=== PATIENT | female | born 1940 | race Caucasian/White ===

== ENCOUNTER 2018-08-02 08:00 | Emergency (ER) | payer BC ==
[2018-08-02 08:10] VITALS: BMI 24.5
[2018-08-02 08:56] LABS: URINE APPEARANCE CLEAR; URINE BILIRUBIN NEGATIVE (<2.0 mg/dL); URINE COLOR LTYELLOW; URINE GLUCOSE (UA) NEGATIVE (NEGATIVE); URINE KETONE NEGATIVE (NEGATIVE); URINE LEUK ESTERASE NEGATIVE (NEGATIVE); URINE NITRITE NEGATIVE (NEGATIVE); URINE PROTEIN NEGATIVE (NEGATIVE); URINE UROBILINOGEN NEGATIVE mg/dL (0.2-1.0)
[2018-08-02 09:05] LABS: EPI CELLS RARE /HPF (FEW); URINE MUCUS RARE
[2018-08-02 09:47] LABS: BASO % 0.4 % (0-2.0); EOS % 0.3 % (0-4.5); HEMATOCRIT 43.4 % (32.4-45.2); HEMOGLOBIN 14.9 GM/dL (10.7-15.3); MCH 30.4 pg (25.7-33.7); MCHC 34.2 g/dl (32.0-36.0); MEAN CELL VOLUME 88.8 fl (80-96); MEAN PLT VOLUME 7.8 fl (7.5-11.1); MONO % 5.7 % (3.8-10.2); NEUT % 85.6 % (42.8-82.8); PLATELET COUNT 240 K/MM3 (134-434); RBC 4.89 M/mm3 (3.60-5.2); RDW 13.9 % (11.6-15.6); WHITE BLOOD COUNT 12.3 K/mm3 (4.0-10.0)
--- NOTE | 2018-08-02 09:48 | PDOC ---
History of Present Illness - General Chief Complaint: Pain, Acute Stated Complaint: ABDOMINAL PAIN Time Seen by Provider: 08/02/18 08:33 History Source: Patient Exam Limitations: No Limitations - History of Present Illness Initial Comments: 08/02/18 09:28 Patient is a 78F with history of osteoporosis, breast ca s/p mastectomy, chemo, radiation (completed in ) here today complaining of suprapubic abdominal pain for the past week. No fevers, chills, nausea, vomiting. No prior abdominal surgery. Patient endorses associated urinary frequency, denies dysuria. Last bowel movement yesterday. No chest pain or shortness of breath. No leg swelling. Past History - Past Medical History Allergies/Adverse Reactions: Allergies Allergy/AdvReac Type Severity Reaction Status Date / Time No Known Allergies Allergy Unverified 10/19/15 18:01 Home Medications: Ambulatory Orders Ciprofloxacin [Cipro (Restricted To Id)] 500 mg PO BID #20 tablet 08/02/18 Metronidazole 500 mg PO TID #30 tablet 08/02/18 Tramadol HCl 50 mg PO BID #10 tablet MDD 2 08/02/18 Cancer: Yes (breast) COPD: Yes - Surgical History Abdominal Surgery: No - Immunization History Immunization Up to Date: Yes - Suicide/Smoking/Psychosocial Hx Smoking Status: No Smoking History: Never smoked Number of Cigarettes Smoked Daily: 0 Cigars Per Day: 0 Information on smoking cessation initiated: No Hx Alcohol Use: No Drug/Substance Use Hx: No Substance Use Type: None Review of Systems - Review of Systems Comments:: 08/02/18 09:32 GENERAL/CONSTITUTIONAL: No fever or chills. No weakness. HEAD, EYES, EARS, NOSE AND THROAT: No change in vision. No sore throat. CARDIOVASCULAR: No chest pain or shortness of breath RESPIRATORY: No cough, wheezing, or hemoptysis. GASTROINTESTINAL: No nausea, vomiting, diarrhea or constipation. GENITOURINARY: No dysuria, +frequency MUSCULOSKELETAL: No joint or muscle swelling or pain. No neck or back pain. SKIN: No rash NEUROLOGIC: No headache, vertigo, loss of consciousness, or change in strength/ sensation. ENDOCRINE: No increased thirst. No abnormal weight change HEMATOLOGIC/LYMPHATIC: No anemia, easy bleeding, or history of blood clots. ALLERGIC/IMMUNOLOGIC: No hives or skin allergy. *Physical Exam - Vital Signs Last Vital Signs Temp Pulse Resp BP Pulse Ox 98.1 F 106 H 17 115/84 94 L 08/02/18 08:07 08/02/18 08:07 08/02/18 08:07 08/02/18 08:07 08/02/18 08:07 - Physical Exam Comments: 08/02/18 09:48 GENERAL: Awake, alert, and fully oriented, in no acute distress HEAD: No signs of trauma, normocephalic, atraumatic EYES: PERRLA, EOMI, sclera anicteric, conjunctiva clear ENT: Auricles normal inspection, hearing grossly normal, nares patent, oropharynx clear without exudates. Moist mucosa NECK: Normal ROM, supple, no lymphadenopathy, JVD, or masses LUNGS: No distress, speaks full sentences, clear to auscultation bilaterally HEART: Regular rate and rhythm, normal S1 and S2, no murmurs, rubs or gallops, peripheral pulses normal and equal bilaterally. ABDOMEN: Soft, +suprapubic tenderness, normoactive bowel sounds. No guarding, no rebound. No masses EXTREMITIES: Normal inspection, Normal range of motion, no edema. No clubbing or cyanosis. NEUROLOGICAL: Cranial nerves II through XII grossly intact. Normal speech, normal gait, no focal sensorimotor deficits SKIN: Warm, Dry, normal turgor, no rashes or lesions noted. ED Treatment Course - LABORATORY CBC & Chemistry Diagram: 08/02/18 09:30 08/02/18 09:30 - ADDITIONAL ORDERS Additional order review: Laboratory Results 08/02/18 08:45 Urine Color Ltyellow Urine Appearance Clear Urine pH 6.0 Ur Specific [place] 1.006 L Urine Protein Negative Urine Glucose (UA) Negative Urine Ketones Negative Urine Blood 2+ H Urine Nitrite Negative Urine Bilirubin Negative Urine Urobilinogen Negative Ur Leukocyte Esterase Negative Urine WBC (Auto) 1 Urine RBC (Auto) 3 Ur Epithelial Cells Rare Urine Mucus Rare Medical Decision Making - Medical Decision Making 08/02/18 09:51 Patient is a 78F with history of breast cancer and osteoporosis here today complaining of suprapubic abdominal pain. Initial UA normal. Tachycardic to 106 , afebrile. Rectal temp ordered. Patient appears well. DDx includes, but is not limited to: UTI, diverticulitis, nephrolithiasis. Abdominal labs drawn, will do CT a/p. 08/02/18 18:25 CBC shows leukocytosis. CMP reassuring. Lipase negative CT abd/pelvis shows diverticulitis. Patient is tolerating PO, asking to go home. Given strict return precautions. PO challenged passed. Will follow up with primary care doctor. Discharged with cipro/flagyl. *DC/Admit/Observation/Transfer Diagnosis at time of Disposition: Diverticulitis - Discharge Dispostion Disposition: HOME Condition at time of disposition: Good Decision to Admit order: No - Prescriptions Prescriptions: Ciprofloxacin [Cipro (Restricted To Id)] 500 mg PO BID #20 tablet Metronidazole 500 mg PO TID #30 tablet Tramadol HCl 50 mg PO BID #10 tablet MDD 2 - Referrals Referrals: Deysi Reeves MD [Primary Care Provider] - - Patient Instructions Printed Discharge Instructions: DI for Diverticulitis Additional Instructions: Please call your primary care doctor today to set up follow up for next week. Please return immediately if you have any new, worsening or concerning symptoms , especially fever, chills, increasing pain and vomiting. - Post Discharge Activity
[2018-08-02 10:13] LABS: INR 1.11 (0.83-1.09); PROTHROMBIN TIME (PATIENT) 13.1 SEC (9.7-13.0)
[2018-08-02 10:21] LABS: ALBUMIN 3.6 g/dl (3.4-5.0); ALK PHOS 82 U/L (45-117); ANION GAP 10 MMOL/L (8-16); BILIRUBIN,TOTAL 1.4 mg/dL (0.2-1); BLOOD UREA NITROGEN 13 mg/dL (7-18); CALCIUM 8.4 mg/dL (8.5-10.1); CHLORIDE 103 mmol/L (98-107); CO2 25 mmol/L (21-32); CREATININE 0.7 mg/dL (0.55-1.3); GLUCOSE,RANDOM 105 mg/dL (74-106); LIPASE 186 U/L (73-393); POTASSIUM 4.9 mmol/L (3.5-5.1); SGOT/AST 25 U/L (15-37); SGPT/ALT 14 U/L (13-61); SODIUM 138 mmol/L (136-145); TOT PROT 7.3 g/dl (6.4-8.2)
[2018-08-02] MEDS ORDERED: metroNIDAZOLE 500 MG TABLET PO ONE (12:17)
[2018-08-02] MEDS ORDERED: metroNIDAZOLE 250 MG TABLET ONE (12:28)
[2018-08-02 12:49] VITALS: BP 136/78; PULSE 78; TEMP 98.2
--- NOTE | 2018-08-02 13:39 | EKG ---
Test Reason : Blood Pressure : / mmHG Vent. Rate : 080 BPM Atrial Rate : 080 BPM P-R Int : 186 ms QRS Dur : 072 ms QT Int : 390 ms P-R-T Axes : 052 -36 013 degrees QTc Int : 449 ms NORMAL SINUS RHYTHM LEFT AXIS DEVIATION ABNORMAL ECG WHEN COMPARED WITH ECG OF 22-MAY-2008 15:08, NO SIGNIFICANT CHANGE WAS FOUND Confirmed by DEYSI ZAMORANO MD ([id number]) on 08/02/2018 1:38:49 PM Referred By: Confirmed By:DEYSI ZAMORANO MD
== END 2018-08-02 12:49 | disposition home or self-care (01) ==
LOC: JER 08:00
DX: K57.92 Diverticulitis of intestine, part unspecified, without perforation or abscess without bleeding (principal); Z85.3 Personal history of malignant neoplasm of breast
CPT/HCPCS: 36415; 74177-TC; 80053; 81003; 81015; 82550; 83605; 83690; 84484; 85025; 85610; 87086; 93005; 93010; 99283-25

== ENCOUNTER 2018-08-12 09:19 | Inpatient (IN) | payer BC, OTHER ==
[2018-08-12] MEDS ORDERED: SODIUM CHLORIDE 0.9% 500 ML INFUS.BAG IV ONE (09:28)
[2018-08-12] MEDS ORDERED: dilTIAZem HCL 50 MG/10 ML - 10 ML VIAL IVPUSH ONE ×2 (09:28→10:27)
--- NOTE | 2018-08-12 09:28 | PDOC ---
Attending Attestation - Medical Decision Making 08/12/18 10:[address] Tubbs. Awaiting call back from Dr. Souza, covering doctor. 08/12/18 11:[address] Souza. <Juliana Feng - Last Filed: 08/12/18 11:01> - Resident Resident Name: Aliya Powers - ED Attending Attestation I have performed the following: I have examined & evaluated the patient, The case was reviewed & discussed with the resident, I agree w/resident's findings & plan, Exceptions are as noted - HPI HPI: 78 yo F recently diagnosed with diverticulitis presents with palpitations, weakness since this AM. No prior similar symptoms. Denies cp, SOB, leg swelling. No prior cardiac history. - Physicial Exam PE: GENERAL: Awake, alert, and fully oriented, in no acute distress HEAD: No signs of trauma EYES: PERRLA, EOMI, sclera anicteric, conjunctiva clear ENT: Auricles normal inspection, hearing grossly normal, nares patent, oropharynx clear without exudates. Moist mucosa NECK: Normal ROM, supple, no lymphadenopathy, JVD, or masses LUNGS: Breath sounds equal, clear to auscultation bilaterally. No wheezes, and no crackles HEART: Tachycardic, irregularly irregular. ABDOMEN: Soft, nontender, normoactive bowel sounds. No guarding, no rebound. No masses EXTREMITIES: Normal range of motion, no edema. No clubbing or cyanosis. No cords, erythema, or tenderness NEUROLOGICAL: Cranial nerves II through XII grossly intact. Normal speech. Motor and sensation intact. SKIN: Warm, Dry, normal turgor, no rashes or lesions noted. - Medical Decision Making Pt with new onset rapid afib. Did not respond to cardizem 10mg, then an additional dose of cardizem was given after a push dose of phenylephrine. At this point her CBC resulted with a significant drop in Hb from ~14 to 7.8. In light of the new afib with hypotension and tachycardia, we emergently transfused her. Lab later called to state that the samples appeared diluted (IV fluid was not hanging when blood draw was done, it had been held when she first arrived in ED). Unclear how this happened, but the results were repeated, subsequently with Hb ~14, consistent with prior history. Explained to patient at bedside. Case d/w Dr. Souza, recommended digoxin. <Melody Schroeder - Last Filed: 08/12/18 14:40>
[2018-08-12 09:29] VITALS: BMI 24.5
[2018-08-12] MEDS ORDERED: dilTIAZem HCL 125 MG/25 ML - 25 ML VIAL ONE (09:32)
--- NOTE | 2018-08-12 09:49 | PDOC ---
History of Present Illness - General Chief Complaint: Palpitations Stated Complaint: Palpitations Time Seen by Provider: 08/12/18 09:27 History Source: Patient, EMS, Family Exam Limitations: No Limitations - History of Present Illness Initial Comments: 08/12/18 09:43 78YOF with h/o hyperthyroidism (had nodules removed years ago), MVP, right mastectomy/radical lymph note dissection, and diverticulitis (recently finished abx course) who was BIBEMS for rapid palpitations, SOB, slightly lightheaded. Never had this before, no estrogen use or recent extremity pain/swelling, no long trips. Did have recent cataract surgery in addition to the diverticulitis. Was having some very dark stool over the past 10 days but thought it was the meds she was taking. Denies CP, syncope/presyncope, back pain, abdominal pain, f /c/n/v/d/c. Past History - Past Medical History Allergies/Adverse Reactions: Allergies Allergy/AdvReac Type Severity Reaction Status Date / Time No Known Allergies Allergy Unverified 08/12/18 09:29 Home Medications: Ambulatory Orders NK [No Known Home Medication] 08/13/18 Cancer: Yes (breast) Cardiac Disorders: No COPD: Yes CHF: No GI Disorders: Yes (diverticulitis) - Surgical History Abdominal Surgery: No - Immunization History Immunization Up to Date: Yes - Suicide/Smoking/Psychosocial Hx Smoking Status: No Smoking History: Never smoked Have you smoked in the past 12 months: No Number of Cigarettes Smoked Daily: 0 Cigars Per Day: 0 Information on smoking cessation initiated: No Hx Alcohol Use: No Drug/Substance Use Hx: No Substance Use Type: None Review of Systems - Review of Systems Able to Perform ROS?: Yes Comments:: GEN: no fever, chills, generalized weakness, malaise, unintentional weight change, or loss of appetite HEENT: no ear pain, congestion, sore throat, rhinorrhea, nosebleed, vision change, or eye pain CV: palpitations, lightheaded, no chest pain, syncope, or edema RESP: SOB, no cough, or wheezing GI: no abdominal pain, nausea, vomiting, diarrhea, constipation, or black/bloody /white stool : no dysuria, hematuria, frequency, incontinence, retention, pruritis, bleeding, or discharge MSK: no weakness, joint swelling, joint pain, or muscle pain NEURO: no headache, seizure, numbness, tingling, focal weakness, or head trauma PSYCH: no suicidality, homicidality, or substance abuse SKIN: no jaundice, rash, cuts, or bruises *Physical Exam - Vital Signs Last Vital Signs Temp Pulse Resp BP Pulse Ox 98.2 F 74 18 133/82 96 08/13/18 09:00 08/13/18 09:00 08/13/18 09:00 08/13/18 09:00 08/13/18 09:00 - Physical Exam Comments: GENERAL: nontoxic but tired appearing elderly female, A/Ox4, speaking in full sentences, answers appropriately HEENT: PERRLA, EOMI, moist mucous membranes, no cervical lymphadenopathy NECK: no midline ttp, no spinal stepoff or deformity, full ROM, supple, scar from prior thyroid surgery CARDIOVASCULAR: Irr Irr and tachycardic, ~150-170 bpm, normal S1S2, no MGR, radial and DP pulses 2+ symmetric, cap refill <2 seconds, extremities wwp RESPIRATORY: no respiratory distress, normal and symmetric chest movements during respirations, lungs CTA bilaterally, equal breath sounds GI/ABDOMEN: symmetric appearance, normoactive bowel sounds, soft, no tenderness to palpation, no midline pulsatile masses, no palpated organomegaly : no CVA tenderness BACK: no midline ttp or stepoff or deformity of T/L spine EXTREMITIES: no deformity, no atrophy, extremities wwp, no LE edema SKIN: warm and dry, no pallor, no jaundice, no bruising, no rash, no skin breakdown, no cuts, no lesions NEUROLOGICAL: GCS 15, CN II-XII grossly intact, moving all extremities, 5/5 strength proximally and distally, no facial droop, no decreased sensation Heart Score/ECG Review #1 First EKG: A-fib, RVR, rate 143, lateral STD, no VERONICA #2 Repeat EKG: A-fib with RVR, rate of 120, no ST-T changes ED Treatment Course - LABORATORY CBC & Chemistry Diagram: 08/12/18 12:18 08/13/18 05:30 - ADDITIONAL ORDERS Additional order review: Laboratory Results 08/12/18 11:00 Transferrin 191 L 08/12/18 08/12/18 08/12/18 12:18 09:50 09:27 RBC 4.96 MCV 89.3 MCHC 31.9 L RDW 14.3 MPV 7.2 L Neutrophils % 81.7 Lymphocytes % 9.6 Monocytes % 7.0 Eosinophils % 0.5 Basophils % 1.2 POC Glucometer [id number] - Medications Given in the ED: ED Medications Discontinued Medications Generic Name Dose Route Start Last Admin Trade Name Jasonq PRN Reason Stop Dose Admin Digoxin 0.5 mg 08/12/18 11:06 08/12/18 12:11 Lanoxin Injection - IVPUSH 08/12/18 11:07 Not Given ONCE ONE Digoxin 0.5 mg 08/12/18 13:14 08/12/18 13:16 Lanoxin Injection - IVPUSH 08/12/18 13:15 0.5 mg ONCE ONE Administration Diltiazem HCl 10 mg 08/12/18 09:28 08/12/18 09:32 Cardizem Injection - IVPUSH 08/12/18 09:29 10 mg ONCE ONE Administration Diltiazem HCl 10 mg 08/12/18 10:27 08/12/18 10:42 Cardizem Injection - IVPUSH 08/12/18 10:28 10 mg ONCE ONE Administration Sodium Chloride 1,000 mls @ 1,000 mls/hr 08/12/18 10:47 08/12/18 11:10 Normal Saline - IV 08/12/18 11:46 Not Given ASDIR STA Metoclopramide HCl 10 mg 08/12/18 10:47 08/12/18 11:10 Reglan Injection - IVPB 08/12/18 10:48 Not Given ONCE ONE Metoprolol Tartrate 10 mg 08/12/18 12:44 08/12/18 13:16 Lopressor Injection - IVPUSH 08/12/18 12:45 Not Given ONCE ONE Phenylephrine HCl 10,000 mcg 08/12/18 10:15 08/12/18 10:39 Tj-Synephrine - IVPB 08/12/18 10:16 10,000 mcg NOW ONE Administration Potassium Chloride 40 meq 08/13/18 10:55 08/13/18 11:30 K-Dur - PO 08/13/18 10:56 40 meq ONCE ONE Administration Sodium Chloride 2,000 ml 08/12/18 09:28 08/12/18 10:04 Normal Saline - IV 08/12/18 09:29 2,000 ml ONCE ONE Administration Medical Decision Making - Critical Care Time Total Critical Care Time (minutes): 35 Critical Care Statement: The care of this patient involved high complexity decision making to prevent further life threatening deterioration of the patient 's condition and/or to evaluate & treat vital organ system(s) failure or risk of failure. - Medical Decision Making Adult female Pt p/w rapid palpitations, LH, SOB, no prior h/o this. Initial Vital Signs Temp Pulse Resp BP Pulse Ox 98.3 F 143 H 16 103/58 L 100 08/12/18 09:25 08/12/18 09:25 08/12/18 09:25 08/12/18 09:25 08/12/18 09:25 Exam: As noted in Physical Exam section. DDX IBNLT: tachyarrhythmia (most likely AF with RV, possibly AFL, SVT, re- entrant tachycardia, MAT), ischemia (ACS), structural heart condition (MVP, mitral stenosis, atrial enlargement, LL HOCM), thyroid condition, PE, sepsis/ shock, PTX, metabolic (e.g. DKA, hypoglycemia), catecholamine surge (e.g. pheochromocytoma), anxiety/panic disorder, medication effect, substance use, etc. W/U ordered: Monitor EKG CXR CBCD CMP Mg Phos TSH Cardiac Panel UA UCx hCG Labs drawn/sent, all IVs need to be in LUE as right has limb alert, prior mastectomy & LN dissection. TX ordered: IV x2, O2, 10 mg Dilt IVP, IVFx2 bags simultaneously EKG: Reviewed; results as noted in ECG Review section. 08/12/18 09:49 Patient got dilt 10 mg IVP, now HR is 120-130, BP 83/56. She feels fine, no LH now, RN placing supplemental O2 given SOB but satting well on RA. 08/12/18 10:02 Ordering push dose phenylephrine then cardizem push dose again. Repeat systolic BP is 90 at this time, patient denies sxs. CXR: Possible mild vascular congestion. 08/12/18 10:41 Push dose pressor + dilt push did not work; call was placed to Dr. Tubbs's group. Patient's BP remains in the 80s systolic, 50s diastolic at this time. Technically with BP<90 systolic, SOB, intermittent lightheadedness, patient is in unstable A-fib with RVR. Called blood bank after Hgb resulted low carmel compared with earlier this month. They are sending up 2 units O- blood for immediate transfusion. Ordered FOBT. 08/12/18 11:[address] Souza; will try 0.5 mg pish digoxin along with xfusion. If this does not work in ~20 minutes for rate control will try amio drip without bolus. If needs pressure control, may need to try more pressors. 08/12/18 12:20 Patient received 1 unit pRBC Chemistries which were drawn at 0950 (per verbal report from lab) suggested potassium <2. Other markedly deranged electrolyte levels as well; likely sample contaminated but unclear why. There were no fluids attached to the patient for ~5 minutes prior to lab draw and the PIV line was not primed before draw. I spoke with lab; most likely with the changes in the CBCD that was drawn at 0950, this also was contaminated. CBCD and CMP and cardiac panel are re-drawn at this time. Initial lab results in first table below. We did not have chemistry results from initial lab draw until much later - sample took long to run in lab. I had called lab to check on the status of the chemistries. Results from second lab draw in Table 2 and below this point. Laboratory Tests 08/12/18 08/12/18 08/12/18 09:27 09:50 09:50 WBC 4.3 RBC 2.69 L Hgb 7.8 L Hct 24.1 L D MCV 89.6 MCH 29.2 MCHC 32.5 RDW 13.9 Plt Count 155 D MPV 7.3 L Absolute Neuts (auto) 3.2 Neutrophils % 73.6 Lymphocytes % 15.0 D Monocytes % 7.8 Eosinophils % 2.2 D Basophils % 1.4 D Nucleated RBC % 0 Retic Count PT with INR 20.20 H INR 1.70 H PTT (Actin FS) 32.9 Sodium Potassium Chloride Carbon Dioxide Anion Gap BUN Creatinine Creat Clearance w eGFR POC Glucometer [id number] Random Glucose Calcium Ferritin Total Bilirubin AST ALT Alkaline Phosphatase LD Total Creatine Kinase Creatine Kinase Index CK-MB (CK-2) Troponin I Total Protein Albumin TSH Stool Occult Blood Blood Type Antibody Screen Crossmatch 08/12/18 08/12/18 08/12/18 09:50 10:50 11:00 WBC RBC Hgb Hct MCV MCH MCHC RDW Plt Count MPV Absolute Neuts (auto) Neutrophils % Lymphocytes % Monocytes % Eosinophils % Basophils % Nucleated RBC % Retic Count PT with INR INR PTT (Actin FS) Sodium Cancelled Potassium Cancelled Chloride Cancelled Carbon Dioxide Cancelled Anion Gap Cancelled BUN Cancelled Creatinine Cancelled Creat Clearance w eGFR Cancelled POC Glucometer Random Glucose Cancelled Calcium Cancelled Ferritin 183.8 Total Bilirubin Cancelled AST Cancelled ALT Cancelled Alkaline Phosphatase Cancelled LD Total 195 Creatine Kinase Cancelled Creatine Kinase Index CK-MB (CK-2) Troponin I Cancelled Total Protein Cancelled Albumin Cancelled TSH Cancelled Stool Occult Blood Negative Blood Type Antibody Screen Crossmatch 08/12/18 08/12/18 08/12/18 11:00 11:06 12:18 WBC 8.0 RBC 4.96 Hgb 14.1 Hct 44.2 D MCV 89.3 MCH 28.5 MCHC 31.9 L RDW 14.3 Plt Count 235 D MPV 7.2 L Absolute Neuts (auto) 6.5 Neutrophils % 81.7 Lymphocytes % 9.6 D Monocytes % 7.0 Eosinophils % 0.5 Basophils % 1.2 Nucleated RBC % 0 Retic Count 0.74 PT with INR INR PTT (Actin FS) Sodium Potassium Chloride Carbon Dioxide Anion Gap BUN Creatinine Creat Clearance w eGFR POC Glucometer Random Glucose Calcium Ferritin Total Bilirubin AST ALT Alkaline Phosphatase LD Total Creatine Kinase Creatine Kinase Index CK-MB (CK-2) Troponin I Total Protein Albumin TSH Stool Occult Blood Blood Type A POSITIVE Antibody Screen Negative Crossmatch See Detail 08/12/18 12:18 WBC RBC Hgb Hct MCV MCH MCHC RDW Plt Count MPV Absolute Neuts (auto) Neutrophils % Lymphocytes % Monocytes % Eosinophils % Basophils % Nucleated RBC % Retic Count PT with INR INR PTT (Actin FS) Sodium 145 Potassium 4.3 Chloride 112 H Carbon Dioxide 24 Anion Gap 9 BUN 19 H Creatinine 0.9 Creat Clearance w eGFR > 60 POC Glucometer Random Glucose 98 Calcium 7.4 L Ferritin Total Bilirubin 0.4 AST 26 ALT 17 Alkaline Phosphatase 51 LD Total Creatine Kinase 271 H Creatine Kinase Index 2.1 CK-MB (CK-2) 5.8 H Troponin I 0.87 H* Total Protein 5.9 L Albumin 3.1 L TSH Stool Occult Blood Blood Type Antibody Screen Crossmatch 08/12/18 13:00 Repeat CBCD and CMP wnl, troponin noted to be 0.8. I spoke with Dr. Souza; patient will be given digoxin now that Cr has resulted wnl. Patient will get repeat EKG after digoxin push. 08/12/18 14:04 Repeat vitals T 98.6, BP 97/63, SpO2 100, RR 18. Patient asymptomatic. Repeat EKG done and documented. 08/12/18 14:13 Microblog sent to admitting for Dr. Espinoza. I spoke with Dr. Espinoza, patient going to IP Tele, Decision to Admit ordered. 08/13/18 15:16 *DC/Admit/Observation/Transfer Diagnosis at time of Disposition: Atrial fibrillation with rapid ventricular response, Elevated troponin, Palpitations - Discharge Dispostion Condition at time of disposition: Guarded Decision to Admit order: Yes - Referrals - Patient Instructions - Post Discharge Activity
[2018-08-12] MEDS ORDERED: PHENYLEPHRINE HCL 10 MG/1 ML SINGLE DOSE VIAL IVPB ONE (10:15)
[2018-08-12] MEDS ORDERED: PHENYLEPHRINE HCL 10 MG/1 ML SINGLE DOSE VIAL ONE (10:23)
[2018-08-12] MEDS ORDERED: SODIUM CHLORIDE 1,000 ML IV STA (10:47)
[2018-08-12] MEDS ORDERED: METOCLOPRAMIDE HCL INJECTION 10 MG/2 ML VIAL IVPB ONE (10:47)
[2018-08-12] MEDS ORDERED: DIGOXIN 0.5 MG/2 ML AMPUL IVPUSH ONE ×2 (11:06→13:14)
[2018-08-12] MEDS ORDERED: DIGOXIN 0.5 MG/2 ML AMPUL ONE (11:11)
--- NOTE | 2018-08-12 11:39 | CON.CARD ---
Consult Consult Specialty:: CARDIO - History of Present Illness Chief Complaint: palpitations History of Present Illness: 78 F here for rapid palpitations, SOB, slightly lightheaded. palpitations began acutely today, none prior. baseline sob on stairs/inclines if hurries--stable longtime at her copd baseline. no cp/pressure/heavy/tightness at all. no syncpoe recently completed abx course for diverticulitis. in ER, noted to be in rapid AF with soft BPs, and acute anemia. hgb 7's, from 14 ten days ago. no melena/BRBPR. currently, no palpitations (despite HR 130s-140s on monitor) PMH: copd, hyperthyroidism (had nodules removed years ago), MVP, right mastectomy/radical lymph note dissection - Alcohol/Substance Use Hx Alcohol Use: No - Smoking History Smoking history: Never smoked Have you smoked in the past 12 months: No Aproximately how many cigarettes per day: 0 Home Medications - Allergies Allergies/Adverse Reactions: Allergies Allergy/AdvReac Type Severity Reaction Status Date / Time No Known Allergies Allergy Unverified 08/12/18 09:29 - Home Medications Home Medications: Ambulatory Orders Ciprofloxacin [Cipro (Restricted To Id)] 500 mg PO BID #20 tablet 08/02/18 Metronidazole 500 mg PO TID #30 tablet 08/02/18 Tramadol HCl 50 mg PO BID #10 tablet MDD 2 08/02/18 Family Disease History - Family Disease History Family History: Denies (no known cmp) Review of Systems - Review of Systems Constitutional: denies: Chills, Fever Eyes: denies: Eye Pain HENT: denies: Nasal Congestion Neck: denies: Stiffness Cardiovascular: reports: Palpitations. denies: Edema Respiratory: denies: Orthopnea, PND Gastrointestinal: denies: Diarrhea, Rectal Bleeding Genitourinary: denies: Burning, Hematuria Musculoskeletal: denies: Muscle Pain Integumentary: denies: Rash Neurological: denies: Numbness, Seizure, Syncope Endocrine: denies: Excessive Sweating Hematology/Lymphatic: denies: Excessive Bleeding Vital Signs: Vital Signs Temperature 98.3 F 08/12/18 09:25 Pulse Rate 143 H 08/12/18 09:25 Respiratory Rate 16 08/12/18 09:25 Blood Pressure 103/58 L 08/12/18 09:25 O2 Sat by Pulse Oximetry (%) 100 08/12/18 09:25 Constitutional: Yes: Well Nourished, No Distress Eyes: No: Sclera Icterus HENT: No: Nasal Congestion Neck: No: Decreased ROM Respiratory: Yes: CTA Bilaterally. No: Accessory Muscle Use, Rales, Wheezes Gastrointestinal: Yes: Normal Bowel Sounds. No: Distention, Hepatomegaly, Palpable Mass, Tenderness Cardiovascular: Yes: Pulse Irregular JVD: No Carotid Bruit: No PMI: Non-Displaced Heart Sounds: Yes: S1, S2. No: Gallop Murmur: Yes: Systolic Murmur (very soft/brief syst M L axillary line). No: Diastolic Murmur Musculoskeletal: Yes: Other (No kyphosis) Extremities: No: Cool, Cyanosis Edema: No Peripheral Pulses: 2+ Left Carotid, 2+ Right Carotid, 2+ Left Doralis Pedis, 2+ Right Dorsalis Pedis Integumentary: No: Jaundice Neurological: Yes: Alert, Oriented (x3) Psychiatric: No: Agitated - Other Data Labs, Other Data: CBC, BMP 08/12/18 09:50 INR, PTT INR 1.70 (0.83-1.09) H 08/12/18 09:50 Assessment/Plan ECG: afib. nl axis. diffuse ST-Ts c/w ischemia CXR: central congestive changes. image reviewed: decr insp effort, no vascular redistrib pattern, no effusions-- suspect soft tissue crowding > pulm congestion Echo 05/11: nl EF 60-65%. mild LAE. 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 at least mild pHTN (no RVSP. elevated PA diast measurement) Cardiac MRI 2016: nl LVEF (62%). nl RV. severe LAE. prolapse of posterior leaflet, moderate MR (RV 17%. rapid AF: -transiently responded to iv diltiazem in ER but bp dropped (after 10mg IVP x 2 doses) -given digoxin 0.5 per my rec, approx 12:15pm--currently 30 min later no effect (HR 130s-140) -will try low dose IV metoprolol, watch for hypotension -continue IVF for now, given do not see any s/sx suggesting HF. -will need to consider amio gtt (no bolus) if cannot control her otherwise -will consider RENATA/DCCV while pt here if cannot adequately control her HR and doesn't convert spontaneously -CHADS VASC 3. defer AC until repeat hgb back MV prolapse, moderate-severe MR: -prior cardiac MRI confirmed moderate MR -now with new afib -needs MR severity reassessed as outpatient with dedicated echo and possibly RENATA (+/-) CMR as outpt--if severe MR with afib, she has IIa indication for MV surgery anemia: -suspect labs erroneous, as pt denies melena/brbpr and markedly decr'd from recent baseline -rpt labs pending .
[2018-08-12 12:29] LABS: BASO % 1.2 % (0-2.0); EOS % 0.5 % (0-4.5); HEMATOCRIT 44.2 % (32.4-45.2); HEMOGLOBIN 14.1 GM/dL (10.7-15.3); LYMPH % 9.6 % (8-40); MCH 28.5 pg (25.7-33.7); MCHC 31.9 g/dl (32.0-36.0); MEAN CELL VOLUME 89.3 fl (80-96); MEAN PLT VOLUME 7.2 fl (7.5-11.1); NEUT % 81.7 % (42.8-82.8); PLATELET COUNT 235 K/MM3 (134-434); RBC 4.96 M/mm3 (3.60-5.2); RDW 14.3 % (11.6-15.6)
[2018-08-12] MEDS ORDERED: METOPROLOL TARTRATE 5 MG/5 ML VIAL IVPUSH ONE (12:44)
[2018-08-12 12:50] LABS: ALBUMIN 3.1 g/dl (3.4-5.0); ALK PHOS 51 U/L (45-117); ANION GAP 9 MMOL/L (8-16); BILIRUBIN,TOTAL 0.4 mg/dL (0.2-1); BLOOD UREA NITROGEN 19 mg/dL (7-18); CALCIUM 7.4 mg/dL (8.5-10.1); CHLORIDE 112 mmol/L (98-107); CO2 24 mmol/L (21-32); CREATININE 0.9 mg/dL (0.55-1.3); GLUCOSE,RANDOM 98 mg/dL (74-106); POTASSIUM 4.3 mmol/L (3.5-5.1); SGOT/AST 26 U/L (15-37); SGPT/ALT 17 U/L (13-61); SODIUM 145 mmol/L (136-145); TOT PROT 5.9 g/dl (6.4-8.2)
[2018-08-12] MEDS ORDERED: HEPARIN NA (PORCINE) 5,000 UNITS/ML 1ML VIAL IVPUSH PRN ×2 (13:05)
[2018-08-12] MEDS ORDERED: HEPARIN INFUSION - 25,000 UNITS/500 ML INFUS.BAG IVPB ONE (13:29)
[2018-08-12] MEDS: HEPARIN - 25,000 UNIT in SODIUM CHLORIDE 495 ML IV SCH (13:39)
[2018-08-12] MEDS ORDERED: ACETAMINOPHEN 325 MG TABLET (FP) PO PRN (15:04)
--- NOTE | 2018-08-12 17:42 | HP ---
Admitting History and Physical - Primary Care Physician PCP: Deysi Reeves - Admission Chief Complaint: My hear was racing History of Present Illness: Ms Villatoro is a very pleasant 78 year old male who comes in with complaints of her heart racing. She has recently been treated for a diverticulitis and finished her antibiotic course on Sunday. She says she was feeling better, however this morning she says she felt her heart starting to race. She felt it beat really fast. She says it started at 8:30am and persisted. She has no complaints aside from a rapid heart beat. She denies fevers, chills, lightheadedness, dizziness, passing out, diaphoresis, anxiety, chest pain or pressure, fluttering, shortness of breath, nausea, vomiting, diarrhea, constipation, difficulty or pain on urination, or swelling. History Source: Patient Limitations to Obtaining History: No Limitations - Past Medical History Cardiovascular: Yes: Other (mitral valve prolapse) Pulmonary: Yes: COPD - Past Surgical History Past Surgical History: Yes: Cataract Removal, Mastectomy (R) - Smoking History Smoking history: Never smoked Have you smoked in the past 12 months: No Aproximately how many cigarettes per day: 0 - Alcohol/Substance Use Hx Alcohol Use: No History of Substance Use: reports: None - Social History ADL: Independent History of Recent Travel: No Home Medications - Allergies Allergies/Adverse Reactions: Allergies Allergy/AdvReac Type Severity Reaction Status Date / Time No Known Allergies Allergy Unverified 08/12/18 09:29 - Home Medications Home Medications: Ambulatory Orders Ciprofloxacin [Cipro (Restricted To Id)] 500 mg PO BID #20 tablet 08/02/18 Metronidazole 500 mg PO TID #30 tablet 08/02/18 Tramadol HCl 50 mg PO BID #10 tablet MDD 2 08/02/18 Family Disease History - Family Disease History Family Disease History: Heart Disease: Father, Other: Mother (CVA) Review of Systems Findings/Remarks: Full review of systems obtained, as per HPI and otherwise negative. Physical Examination Vital Signs: Vital Signs Temperature 36.8 C 08/12/18 09:25 Pulse Rate 122 H 08/12/18 14:30 Respiratory Rate 18 08/12/18 14:30 Blood Pressure 104/16 L 08/12/18 14:30 O2 Sat by Pulse Oximetry (%) 96 11/19/18 14:30 Constitutional: Yes: Well Nourished, No Distress, Calm Eyes: Yes: Conjunctiva Clear, EOM Intact, PERRL HENT: Yes: Atraumatic, Normocephalic Cardiovascular: Yes: Tachycardia, Pulse Irregular. No: Gallop, Murmur, Rub Respiratory: Yes: Regular, CTA Bilaterally. No: Rales, Rhonchi, Wheezes Gastrointestinal: Yes: Normal Bowel Sounds, Soft. No: Distention, Tenderness Extremities: Yes: WNL Edema: No Labs: CBC, BMP 08/12/18 12:18 08/12/18 12:18 Imaging - Results Chest X-ray: Report Reviewed, Image Reviewed EKG: Image Reviewed Problem List - Problems (1) Atrial fibrillation with rapid ventricular response Assessment/Plan: -patient seen by cardiology -given IV diltiazem and digoxin -admit to telemetry -defer further agents to cardiology -check TFTs -heparin gtt Code(s): I48.91 - UNSPECIFIED ATRIAL FIBRILLATION (2) Elevated troponin Assessment/Plan: -suspect troponin leak -cardiac enzymes x3 Code(s): R74.8 - ABNORMAL LEVELS OF OTHER SERUM ENZYMES
--- NOTE | 2018-08-12 17:43 | HP ---
Admitting History and Physical - Primary Care Physician PCP: Kate Lyn - Admission History of Present Illness: 78YOF with h/o hyperthyroidism (had nodules removed years ago), MVP, right mastectomy/radical lymph note dissection, and diverticulitis (recently finished abx course) who was BIBEMS for rapid palpitations, SOB, slightly lightheaded. Never had this before, no estrogen use or recent extremity pain/swelling, no long trips. Did have recent cataract surgery in addition to the diverticulitis. Denies CP, syncope/presyncope, back pain, abdominal pain, f/c/n/v/d/c. - Smoking History Smoking history: Never smoked Have you smoked in the past 12 months: No Aproximately how many cigarettes per day: 0 - Alcohol/Substance Use Hx Alcohol Use: No Home Medications - Allergies Allergies/Adverse Reactions: Allergies Allergy/AdvReac Type Severity Reaction Status Date / Time No Known Allergies Allergy Unverified 08/12/18 09:29 - Home Medications Home Medications: Ambulatory Orders Ciprofloxacin [Cipro (Restricted To Id)] 500 mg PO BID #20 tablet 08/02/18 Metronidazole 500 mg PO TID #30 tablet 08/02/18 Tramadol HCl 50 mg PO BID #10 tablet MDD 2 08/02/18 Physical Examination Vital Signs: Vital Signs Temperature 98.3 F 08/12/18 09:25 Pulse Rate 122 H 08/12/18 14:30 Respiratory Rate 18 08/12/18 14:30 Blood Pressure 104/16 L 08/12/18 14:30 O2 Sat by Pulse Oximetry (%) 96 08/12/18 14:30 Labs: CBC, BMP 08/12/18 12:18 08/12/18 12:18 Imaging - Results X-ray: Report Reviewed Assessment/Plan Laboratory Tests 08/12/18 08/12/18 08/12/18 09:27 09:50 09:50 WBC RBC Hgb Hct MCV MCH MCHC RDW Plt Count MPV Absolute Neuts (auto) Neutrophils % Lymphocytes % Monocytes % Eosinophils % Basophils % Nucleated RBC % 0 Retic Count PT with INR INR PTT (Actin FS) Sodium Potassium Chloride Carbon Dioxide Anion Gap BUN Creatinine Creat Clearance w eGFR POC Glucometer [id number] Random Glucose Calcium Ferritin Total Bilirubin AST ALT Alkaline Phosphatase LD Total Creatine Kinase Creatine Kinase Index CK-MB (CK-2) Troponin I Total Protein Albumin TSH Stool Occult Blood Blood Type Antibody Screen Crossmatch 08/12/18 08/12/18 08/12/18 09:50 10:50 11:00 WBC RBC Hgb Hct MCV MCH MCHC RDW Plt Count MPV Absolute Neuts (auto) Neutrophils % Lymphocytes % Monocytes % Eosinophils % Basophils % Nucleated RBC % Retic Count PT with INR INR PTT (Actin FS) Sodium Cancelled Potassium Cancelled Chloride Cancelled Carbon Dioxide Cancelled Anion Gap Cancelled BUN Cancelled Creatinine Cancelled Creat Clearance w eGFR Cancelled POC Glucometer Random Glucose Cancelled Calcium Cancelled Ferritin 183.8 Total Bilirubin Cancelled AST Cancelled ALT Cancelled Alkaline Phosphatase Cancelled LD Total 195 Creatine Kinase Cancelled Creatine Kinase Index CK-MB (CK-2) Troponin I Cancelled Total Protein Cancelled Albumin Cancelled TSH Cancelled Stool Occult Blood Negative Blood Type Antibody Screen Crossmatch 08/12/18 08/12/18 08/12/18 11:00 11:06 12:18 WBC 8.0 RBC 4.96 Hgb 14.1 Hct 44.2 MCV 89.3 MCH 28.5 MCHC 31.9 L RDW 14.3 Plt Count 235 MPV 7.2 L Absolute Neuts (auto) 6.5 Neutrophils % 81.7 Lymphocytes % 9.6 Monocytes % 7.0 Eosinophils % 0.5 Basophils % 1.2 Nucleated RBC % 0 Retic Count 0.74 PT with INR INR PTT (Actin FS) Sodium Potassium Chloride Carbon Dioxide Anion Gap BUN Creatinine Creat Clearance w eGFR POC Glucometer Random Glucose Calcium Ferritin Total Bilirubin AST ALT Alkaline Phosphatase LD Total Creatine Kinase Creatine Kinase Index CK-MB (CK-2) Troponin I Total Protein Albumin TSH Stool Occult Blood Blood Type A POSITIVE Antibody Screen Negative Crossmatch See Detail 08/12/18 12:18 WBC RBC Hgb Hct MCV MCH MCHC RDW Plt Count MPV Absolute Neuts (auto) Neutrophils % Lymphocytes % Monocytes % Eosinophils % Basophils % Nucleated RBC % Retic Count PT with INR INR PTT (Actin FS) Sodium 145 Potassium 4.3 Chloride 112 H Carbon Dioxide 24 Anion Gap 9 BUN 19 H Creatinine 0.9 Creat Clearance w eGFR > 60 POC Glucometer Random Glucose 98 Calcium 7.4 L Ferritin Total Bilirubin 0.4 AST 26 ALT 17 Alkaline Phosphatase 51 LD Total Creatine Kinase 271 H Creatine Kinase Index 2.1 CK-MB (CK-2) 5.8 H Troponin I 0.87 H* Total Protein 5.9 L Albumin 3.1 L TSH Stool Occult Blood Blood Type Antibody Screen Crossmatch Active Medications Generic Name Dose Route Start Last Admin Trade Name Freq PRN Reason Stop Dose Admin Acetaminophen 650 mg 08/12/18 15:04 Tylenol - PO Q4H PRN FEVER Heparin Sodium (Porcine) 1,000 unit 08/12/18 13:05 Heparin - IVPUSH PRN PRN Heparin Heparin Sodium (Porcine) 5,000 unit 08/12/18 13:05 Heparin - IVPUSH PRN PRN Heparin Heparin Sodium (Porcine) 25, 500 mls @ 16 mls/hr 08/12/18 13:15 08/12/18 13: 39 000 unit/ Sodium Chloride IV 800 unit/hr TITR SHIMA 16 mls/hr Administration Protocol 800 UNIT/HR
--- NOTE | 2018-08-12 18:21 | EKG ---
Test Reason : Blood Pressure : / mmHG Vent. Rate : 120 BPM Atrial Rate : 153 BPM P-R Int : 000 ms QRS Dur : 066 ms QT Int : 344 ms P-R-T Axes : 000 -10 005 degrees QTc Int : 486 ms ATRIAL FIBRILLATION WITH RAPID VENTRICULAR RESPONSE WITH PREMATURE VENTRICULAR OR ABERRANTLY CONDUCTED COMPLEXES ABNORMAL ECG WHEN COMPARED WITH ECG OF 12-AUG-2018 09:34, VENT. RATE HAS DECREASED Confirmed by BRYCE CHRISTIAN MD ([id number]) on 08/12/2018 6:21:30 PM Referred By: Confirmed By:BRYCE CHRISTIAN MD
--- NOTE | 2018-08-12 18:26 | EKG ---
Test Reason : Blood Pressure : / mmHG Vent. Rate : 143 BPM Atrial Rate : 163 BPM P-R Int : 000 ms QRS Dur : 076 ms QT Int : 318 ms P-R-T Axes : 000 -11 244 degrees QTc Int : 490 ms ATRIAL FIBRILLATION WITH RAPID VENTRICULAR RESPONSE WITH PREMATURE VENTRICULAR OR ABERRANTLY CONDUCTED COMPLEXES MARKED ST ABNORMALITY, POSSIBLE INFERIOR SUBENDOCARDIAL INJURY ABNORMAL ECG WHEN COMPARED WITH ECG OF 02-AUG-2018 09:57, ATRIAL FIBRILLATION HAS REPLACED SINUS RHYTHM VENT. RATE HAS INCREASED BY [address] NOW DEPRESSED IN INFERIOR LEADS ST NOW DEPRESSED IN ANTEROLATERAL LEADS Confirmed by BRYCE CHRISTIAN MD ([id number]) on 08/12/2018 6:25:46 PM Referred By: Confirmed By:BRYCE CHRISTIAN MD
[2018-08-13 08:24] LABS: ALBUMIN 2.8 g/dl (3.4-5.0); ALK PHOS 42 U/L (45-117); ANION GAP 12 MMOL/L (8-16); BILIRUBIN,TOTAL 0.7 mg/dL (0.2-1); BLOOD UREA NITROGEN 21 mg/dL (7-18); CALCIUM 7.2 mg/dL (8.5-10.1); CHLORIDE 110 mmol/L (98-107); CO2 24 mmol/L (21-32); CREATININE 0.8 mg/dL (0.55-1.3); GLUCOSE,RANDOM 85 mg/dL (74-106); MAGNESIUM 1.8 mg/dL (1.8-2.4); PHOSPHOROUS 3.2 mg/dL (2.5-4.9); POTASSIUM 3.3 mmol/L (3.5-5.1); SGOT/AST 22 U/L (15-37); SGPT/ALT 14 U/L (13-61); SODIUM 146 mmol/L (136-145); TOT PROT 5.4 g/dl (6.4-8.2)
[2018-08-13] MEDS ORDERED: POTASSIUM CHLORIDE TABS 20 MEQ TABLET.ER (FP) PO ONE ×2 (10:55→17:00)
--- NOTE | 2018-08-13 12:38 | PN ---
Progress Note (short form) - Note Progress Note: Chief Complaint: palpitations Current Medications Acetaminophen (Tylenol -) 650 mg PO Q4H PRN PRN Reason: FEVER Heparin Sodium (Porcine) (Heparin -) 1,000 unit IVPUSH PRN PRN PRN Reason: Heparin Heparin Sodium (Porcine) (Heparin -) 5,000 unit IVPUSH PRN PRN PRN Reason: Heparin Last Admin: 08/13/18 00:02 Dose: 5,000 unit Heparin Sodium (Porcine) 25, (000 unit/ Sodium Chloride) 500 mls @ 16 mls/hr IV TITR SHIMA; Protocol Last Titration: 08/13/18 00:02 Dose: 950 unit/hr, 19 mls/hr Vital Signs: Vital Signs Period Temp Pulse Resp BP Sys/Araiza Pulse Ox Last 24 Hr 97.8 F-98.7 F 58-138 16-20 99-136/60-82 96-99 Constitutional: Yes: Well Nourished, No Distress Eyes: No: Sclera Icterus HENT: No: Nasal Congestion Neck: No: Decreased ROM Respiratory: Yes: CTA Bilaterally. No: Accessory Muscle Use, Rales, Wheezes Gastrointestinal: Yes: Normal Bowel Sounds. No: Distention, Hepatomegaly, Palpable Mass, Tenderness Cardiovascular: Yes: Pulse Irregular JVD: No Carotid Bruit: No PMI: Non-Displaced Heart Sounds: Yes: S1, S2. No: Gallop Murmur: Yes: Systolic Murmur (very soft/brief syst M L axillary line). No: Diastolic Murmur Musculoskeletal: Yes: Other (No kyphosis) Extremities: No: Cool, Cyanosis Edema: No Peripheral Pulses: 2+ Left Carotid, 2+ Right Carotid, 2+ Left Doralis Pedis, 2+ Right Dorsalis Pedis Integumentary: No: Jaundice Neurological: Yes: Alert, Oriented (x3) Psychiatric: No: Agitated Assessment/Plan ECG: afib. nl axis. diffuse ST-Ts c/w ischemia CXR: central congestive changes. image reviewed: decr insp effort, no vascular redistrib pattern, no effusions-- suspect soft tissue crowding > pulm congestion Echo 05/11: nl EF 60-65%. mild LAE. 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 at least mild pHTN (no RVSP. elevated PA diast measurement) Cardiac MRI 2016: nl LVEF (62%). nl RV. severe LAE. prolapse of posterior leaflet, moderate MR (RV 17%.) tele: sinus, PVCs atrial fibrillation: -transiently responded to iv diltiazem in ER but bp dropped (after 10mg IVP x 2 doses) -given digoxin, now in sinus -CHADS VASC 3. on heparin gtt - repeat echo ordered elevated troponin - 0.87->2.63->1.66 - no symptoms of ACS - ST changes on EKG likely rate related in setting of afib with RVR, trop elevation likely demand ischemia - defer treatment for ACS, continue heparin gtt for afib MV prolapse, moderate-severe MR: -prior cardiac MRI confirmed moderate MR -now with new afib -needs MR severity reassessed as outpatient with dedicated echo and possibly RENATA (+/-) CMR as outpt--if severe MR with afib, she has IIa indication for MV surgery anemia: -suspect labs erroneous, as pt denies melena/brbpr and markedly decr'd from recent baseline -rpt labs hgb 14
[2018-08-13] MEDS ORDERED: PT OWN MED DRAWER 7, Y5N ONE (13:38)
[2018-08-13] MEDS: HEPARIN - 25,000 UNIT in SODIUM CHLORIDE 495 ML IV SCH (13:40)
--- NOTE | 2018-08-13 14:15 | ECHO ---
Name: ROHAN LINARES Exam:Adult Echocardiogram Study Date: 08/13/2018 12:50 PM Age: 78 yrs Reason For Study: new onset a fib Height: 61 in Weight: 130 lb BSA: 1.6 m2 MMode/2D Measurements & Calculations IVSd: 0.73 cm Ao root diam: 3.2 cm LVIDd: 5.1 cm LA dimension: 3.8 cm LVIDs: 3.1 cm ACS: 2.0 cm LVPWd: 0.73 cm IVSs: 0.95 cm LVPWs: 1.1 cm EDV(Teich): 126.3 ml ESV(Teich): 39.4 ml Doppler Measurements & Calculations MV E max jourdan: 70.1 cm/sec Ao V2 max: 134.7 cm/sec MV A max jourdan: 63.2 cm/sec Ao max P.3 mmHg MV E/A: 1.1 Ao V2 mean: 88.1 cm/sec Ao mean P.7 mmHg Ao V2 VTI: 30.7 cm MR max jourdan: 525.3 cm/sec TR max jourdan: 297.5 cm/sec MR max P.4 mmHg TR max P.5 mmHg RVSP(TR): 45.5 mmHg PI end-d jourdan: 105.9 cm/sec Med Peak E' Jourdan: 5.8 cm/sec Med E/e': 12.1 Lat Peak E' Jourdan: 9.7 cm/sec Lat E/e': 7.3 RAP systole: 10.0 mmHg Procedure A complete two-dimensional transthoracic echocardiogram was performed (2D, M-mode, Doppler and color flow Doppler). Left Ventricle The left ventricular size, thickness and function are normal. Ejection Fraction = 60%. The transmitra l spectral Doppler flow pattern is suggestive of impaired LV relaxation. The left ventricular wall rob on is normal. Right Ventricle The right ventricle is normal in size and function. Atria Normal left and right atrial size and function. Mitral Valve The mitral valve is grossly normal. There is mild mitral regurgitation. Tricuspid Valve The tricuspid valve is normal. There is mild tricuspid regurgitation. Right ventricular systolic pres sure is elevated at 50 mmhg. Assuming the RA pressure is 5 mmHg. There is moderate pulmonary hypertension. Aortic Valve There is moderate aortic valve thickening. There is moderate aortic sclerosis.;. Pulmonic Valve The pulmonic valve is not well seen, but is grossly normal. Great Vessels The aortic root is normal size. Pericardium/Pleura There is no pericardial effusion. There is no pleural effusion. Interpretation Summary The left ventricular size, thickness and function are normal Ejection Fraction = 60%. There is mild mitral regurgitation. There is mild tricuspid regurgitation. Right ventricular systolic pressure is elevated at 50 mmhg. There is moderate pulmonary hypertension. There is moderate aortic sclerosis.; MD Lio Downey 08/13/2018 02:14 PM
--- NOTE | 2018-08-13 15:45 | PN ---
Progress Note, Physician Chief Complaint: palpitations History of Present Illness: no more palpitations since converted to sinus last night. no cp, sob, dizzy FH: father CABG - Current Medication List Current Medications: Active Medications Acetaminophen (Tylenol -) 650 mg PO Q4H PRN PRN Reason: FEVER Heparin Sodium (Porcine) (Heparin -) 1,000 unit IVPUSH PRN PRN PRN Reason: Heparin Heparin Sodium (Porcine) (Heparin -) 5,000 unit IVPUSH PRN PRN PRN Reason: Heparin Last Admin: 08/13/18 00:02 Dose: 5,000 unit Heparin Sodium (Porcine) 25, (000 unit/ Sodium Chloride) 500 mls @ 16 mls/hr IV TITR SHIMA; Protocol Last Admin: 08/13/18 13:40 Dose: 850 unit/hr, 17 mls/hr - Objective Vital Signs: Vital Signs Temperature 98.2 F 08/13/18 14:20 Pulse Rate 73 08/13/18 14:20 Respiratory Rate 17 08/13/18 14:20 Blood Pressure 134/64 08/13/18 14:20 O2 Sat by Pulse Oximetry (%) 96 08/13/18 09:00 Constitutional: Yes: No Distress, Calm Eyes: No: Sclera Icterus HENT: No: Nasal Congestion Cardiovascular: Yes: Regular Rate and Rhythm, Murmur (soft MR murmur), S1, S2, Other (PMI non diplaced). No: JVD, Gallop Respiratory: Yes: CTA Bilaterally. No: Accessory Muscle Use, Rales, Wheezes Gastrointestinal: Yes: Normal Bowel Sounds, Soft. No: Tenderness Musculoskeletal: Yes: Other (No kyphosis) Extremities: No: Cyanosis Edema: No Integumentary: No: Jaundice Neurological: Yes: Alert, Oriented (x3) Psychiatric: No: Agitated Labs: CBC, BMP 08/12/18 12:18 08/13/18 05:30 INR, PTT INR (0.83-1.09) 08/12/18 09:50 Assessment/Plan ECG 08/12: afib. nl axis. diffuse ST-Ts c/w ischemia ECG 08/13: NSR, no ischemic changes CXR: central congestive changes. image reviewed: decr insp effort, no vascular redistrib pattern, no effusions-- suspect soft tissue crowding > pulm congestion Echo 08/13/18: nl LV/EF. nl RV. normal morphology MV with mild MR. RVSP 50. Echo 05/11: nl EF 60-65%. mild LAE. 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 at least mild pHTN (no RVSP. elevated PA diast measurement) Cardiac MRI 2016: nl LVEF (62%). nl RV. severe LAE. prolapse of posterior leaflet, moderate MR (RV 17%). tele: NSR, runs of NSVT 7 beats x 2, 6 beats rapid AF: -now converted to sinus. -low dose metopr to start -CHADS VASC 3. UFH started here--defer transition to NOAC until after cath. NSTEMI: -ischemic STs on ECG in ER, when in rapid Afib-->resolved in sinus -troponin [id number] pattern peaked at 2.6 -? ACS/plaque rupture event which triggered afib, as the troponin pattern supports this process more than demand ischemia from rapid HRs. -nl LVEF, no RWMA on echo. -no ongoing sx's. -cont UFH as doing -start ASA. defer clopidogrel, as nature of the NC pathophysiology uncertain ( will d/w interventional cardio as well) -start low dose metopr tartrate 25 bid -start hi intensity statin (atorva 80) -d/w'd pt options of pharm MPI (would not be done until 72 hrs post-NC, i.e. day after thanksgiving) vs LHC to definitively eval underlying anatomy and whether thrombotic lesion or not. R/B of both approaches d/w'd pt. -she wishes to d/w son and will have him call me to discuss further. -NOTE: if has cath and PCI, and further evaluation of MV shows severe MR as outpt, would have to defer MV surgery until 6-12 mo DAPT course completed (carmel in setting of ? acute NC)--will d/w interventionalist ahead of time, if pt agreeable to cath VTach: -NSVT on tele -BB as ordered -K/Mag monitoring/repletion as doing -EF preserved, no PMVT hence doubt sec to acute ischemia (? 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 -needs MR severity reassessed as outpatient with dedicated echo and possibly RENATA (+/-) CMR as outpt--if severe MR with afib, she has IIa indication for MV surgery -consider RHC at time of cath COPD: -stable, no signs a.e. .
--- NOTE | 2018-08-13 17:50 | PN ---
Progress Note, Physician Chief Complaint: Ms Villatoro is without complaint. Denies cp, palpitations, sob, n/v. - Current Medication List Current Medications: Active Medications Acetaminophen (Tylenol -) 650 mg PO Q4H PRN PRN Reason: FEVER Aspirin (Ecotrin -) 81 mg PO DAILY SHIMA Atorvastatin Calcium (Lipitor -) 80 mg PO HS SHIMA Heparin Sodium (Porcine) (Heparin -) 1,000 unit IVPUSH PRN PRN PRN Reason: Heparin Heparin Sodium (Porcine) (Heparin -) 5,000 unit IVPUSH PRN PRN PRN Reason: Heparin Last Admin: 08/13/18 00:02 Dose: 5,000 unit Heparin Sodium (Porcine) 25, (000 unit/ Sodium Chloride) 500 mls @ 16 mls/hr IV TITR SHIMA; Protocol Last Admin: 08/13/18 13:40 Dose: 850 unit/hr, 17 mls/hr Metoprolol Tartrate (Lopressor -) 25 mg PO BID SHIMA - Objective Vital Signs: Vital Signs Temperature 36.8 C 08/13/18 14:20 Pulse Rate 73 08/13/18 14:20 Respiratory Rate 17 08/13/18 14:20 Blood Pressure 134/64 08/13/18 14:20 O2 Sat by Pulse Oximetry (%) 96 08/13/18 09:00 Constitutional: Yes: Well Nourished, No Distress, Calm Cardiovascular: Yes: Regular Rate and Rhythm. No: Gallop, Murmur, Rub Respiratory: Yes: Regular, CTA Bilaterally. No: Rales, Rhonchi, Wheezes Gastrointestinal: Yes: Normal Bowel Sounds, Soft. No: Distention, Tenderness Extremities: Yes: WNL Edema: No Labs: CBC, BMP 08/12/18 12:18 08/13/18 05:30 INR, PTT INR (0.83-1.09) 08/12/18 09:50 Problem List - Problems (1) Atrial fibrillation with rapid ventricular response Code(s): I48.91 - UNSPECIFIED ATRIAL FIBRILLATION (2) NSTEMI (non-ST elevated myocardial infarction) Code(s): I21.4 - NON-ST ELEVATION (NSTEMI) MYOCARDIAL INFARCTION Assessment/Plan (1) Atrial fibrillation with rapid ventricular response Assessment/Plan: -case d/w cardiology -start on metoprolol -continue heparin gtt -currently in sinus rhythm Code(s): I48.91 - UNSPECIFIED ATRIAL FIBRILLATION (2) NSTEMI Assessment/Plan: -troponin elevated, trending down -start aspirin and statin -check lipid panel -on metoprolol -further work up per cardiology Code(s): R74.8 - ABNORMAL LEVELS OF OTHER SERUM ENZYMES
[2018-08-13] MEDS: ASPIRIN COATED 81 MG TABLET.EC PO SCH (18:28)
[2018-08-13] MEDS: METOPROLOL TARTRATE 25 MG TABLET (FP) PO SCH ×2 (18:28→21:14)
[2018-08-13] MEDS: ATORVASTATIN CA 80 MG TABLET (FP) PO SCH (21:13)
[2018-08-14 07:28] LABS: HEMATOCRIT 39.4 % (32.4-45.2); HEMOGLOBIN 12.7 GM/dL (10.7-15.3); MCH 28.8 pg (25.7-33.7); MCHC 32.3 g/dl (32.0-36.0); MEAN CELL VOLUME 89.2 fl (80-96); MEAN PLT VOLUME 7.7 fl (7.5-11.1); PLATELET COUNT 206 K/MM3 (134-434); RBC 4.41 M/mm3 (3.60-5.2); RDW 14.3 % (11.6-15.6); WHITE BLOOD COUNT 6.6 K/mm3 (4.0-10.0)
[2018-08-14 09:09] LABS: ANION GAP 9 MMOL/L (8-16); BLOOD UREA NITROGEN 15 mg/dL (7-18); CALCIUM 7.5 mg/dL (8.5-10.1); CHLORIDE 110 mmol/L (98-107); CHOLESTEROL 130 mg/dL (50-200); CO2 25 mmol/L (21-32); CREATININE 0.6 mg/dL (0.55-1.3); GLUCOSE,RANDOM 91 mg/dL (74-106); HDL CHOLESTEROL 46 mg/dL (40-60); MAGNESIUM 1.6 mg/dL (1.8-2.4); PHOSPHOROUS 3.3 mg/dL (2.5-4.9); POTASSIUM 3.9 mmol/L (3.5-5.1); SODIUM 143 mmol/L (136-145); TRIGLYCERIDES 117 mg/dL (0-150)
[2018-08-14] MEDS: METOPROLOL TARTRATE 25 MG TABLET (FP) PO SCH ×2 (09:48→21:46)
[2018-08-14] MEDS: ASPIRIN COATED 81 MG TABLET.EC PO SCH (09:48)
--- NOTE | 2018-08-14 11:28 | PN ---
Progress Note (short form) - Note Progress Note: Chief Complaint: palpitations History of Present Illness: no cp, sob, dizzy, palps Current Medications Acetaminophen (Tylenol -) 650 mg PO Q4H PRN PRN Reason: FEVER Aspirin (Ecotrin -) 81 mg PO DAILY [facility] Last Admin: 08/14/18 09:48 Dose: 81 mg Atorvastatin Calcium (Lipitor -) 80 mg PO HS [facility] Last Admin: 08/13/18 21:13 Dose: 80 mg Heparin Sodium (Porcine) (Heparin -) 1,000 unit IVPUSH PRN PRN PRN Reason: Heparin Heparin Sodium (Porcine) (Heparin -) 5,000 unit IVPUSH PRN PRN PRN Reason: Heparin Last Admin: 08/13/18 00:02 Dose: 5,000 unit Heparin Sodium (Porcine) 25, (000 unit/ Sodium Chloride) 500 mls @ 16 mls/hr IV TITR [facility]; Protocol Last Admin: 08/13/18 13:40 Dose: 850 unit/hr, 17 mls/hr Metoprolol Tartrate (Lopressor -) 25 mg PO BID [facility] Last Admin: 08/14/18 09:48 Dose: 25 mg - Objective Vital Signs: Vital Signs Period Temp Pulse Resp BP Sys/Araiza Pulse Ox Last 24 Hr 97.3 F-98.2 F 60-75 17-20 119-140/64-79 96 Constitutional: Yes: No Distress, Calm Eyes: No: Sclera Icterus HENT: No: Nasal Congestion Cardiovascular: Yes: Regular Rate and Rhythm, Murmur (soft MR murmur), S1, S2, Other (PMI non diplaced). No: JVD, Gallop Respiratory: Yes: CTA Bilaterally. No: Accessory Muscle Use, Rales, Wheezes Gastrointestinal: Yes: Normal Bowel Sounds, Soft. No: Tenderness Musculoskeletal: Yes: Other (No kyphosis) Extremities: No: Cyanosis Edema: No Integumentary: No: Jaundice Neurological: Yes: Alert, Oriented (x3) Psychiatric: No: Agitated Assessment/Plan ECG 08/12: afib. nl axis. diffuse ST-Ts c/w ischemia ECG 08/13: NSR, no ischemic changes CXR: central congestive changes. image reviewed: decr insp effort, no vascular redistrib pattern, no effusions-- suspect soft tissue crowding > pulm congestion Echo 08/13/18: nl LV/EF. nl RV. normal morphology MV with mild MR. RVSP 50. Echo 05/11: nl EF 60-65%. mild LAE. 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 at least mild pHTN (no RVSP. elevated PA diast measurement) Cardiac MRI 2016: nl LVEF (62%). nl RV. severe LAE. prolapse of posterior leaflet, moderate MR (RV 17%). tele: NSR, sinus bradycardia, PVCs, 6 beat run NSVT rapid AF: -now converted to sinus, on metoprolol -CHADS VASC 3. UFH started here--defer transition to NOAC, stress test on Sunday NSTEMI: -ischemic STs on ECG in ER, when in rapid Afib-->resolved in sinus -troponin [id number] pattern peaked at 2.6 -? ACS/plaque rupture event which triggered afib, as the troponin pattern supports this process more than demand ischemia from rapid HRs. -nl LVEF, no RWMA on echo. -no ongoing sx's. -cont UFH as doing -start ASA. defer clopidogrel, as nature of the CT pathophysiology uncertain ( will d/w interventional cardio as well) -start low dose metopr tartrate 25 bid -start hi intensity statin (atorva 80) -d/w'd pt options of pharm MPI (would not be done until 72 hrs post-CT, i.e. day after thanksgi) vs LHC to definitively eval underlying anatomy and whether thrombotic lesion or not. R/B of both approaches d/w'd pt. -patient discussed with son, prefers to have pharm MPI for risk stratification. ordered for Thursday 08/16 VTach: -NSVT on tele -BB as ordered -K/Mag monitoring/repletion as doing -EF preserved, no PMVT hence doubt sec to acute ischemia (? 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 -needs MR severity reassessed as outpatient with dedicated echo and possibly RENATA (+/-) CMR as outpt--if severe MR with afib, she has IIa indication for MV surgery -NOTE: stress test planned for Thursday 08/16, if has cath and PCI, and further evaluation of MV shows severe MR as outpt, would have to defer MV surgery until 6-12 mo DAPT course completed (carmel in setting of ? acute CT) COPD: -stable, no signs a.e. .
--- NOTE | 2018-08-14 14:28 | PN ---
Progress Note, Physician Chief Complaint: Feels better. No palpitation or chest pain. - Current Medication List Current Medications: Active Medications Acetaminophen (Tylenol -) 650 mg PO Q4H PRN PRN Reason: FEVER Aspirin (Ecotrin -) 81 mg PO DAILY [facility] Last Admin: 08/14/18 09:48 Dose: 81 mg Atorvastatin Calcium (Lipitor -) 80 mg PO HS [facility] Last Admin: 08/13/18 21:13 Dose: 80 mg Heparin Sodium (Porcine) (Heparin -) 1,000 unit IVPUSH PRN PRN PRN Reason: Heparin Heparin Sodium (Porcine) (Heparin -) 5,000 unit IVPUSH PRN PRN PRN Reason: Heparin Last Admin: 08/13/18 00:02 Dose: 5,000 unit Heparin Sodium (Porcine) 25, (000 unit/ Sodium Chloride) 500 mls @ 16 mls/hr IV TITR [facility]; Protocol Last Admin: 08/13/18 13:40 Dose: 850 unit/hr, 17 mls/hr Metoprolol Tartrate (Lopressor -) 25 mg PO BID [facility] Last Admin: 08/14/18 09:48 Dose: 25 mg - Objective Vital Signs: Vital Signs Temperature 97.7 F 08/14/18 10:00 Pulse Rate 61 08/14/18 12:04 Respiratory Rate 18 08/14/18 10:00 Blood Pressure 139/79 08/14/18 12:04 O2 Sat by Pulse Oximetry (%) 95 08/14/18 12:04 Labs: CBC, BMP 08/14/18 05:30 08/14/18 05:30 INR, PTT INR (0.83-1.09) 08/12/18 09:50 Problem List - Problems (1) Atrial fibrillation with rapid ventricular response Code(s): I48.91 - UNSPECIFIED ATRIAL FIBRILLATION (2) Elevated troponin Code(s): R74.8 - ABNORMAL LEVELS OF OTHER SERUM ENZYMES (3) NSTEMI (non-ST elevated myocardial infarction) Code(s): I21.4 - NON-ST ELEVATION (NSTEMI) MYOCARDIAL INFARCTION Impression/Plan Impression/Plan: The patient was seen and examined at bedside. Decided to have Pharm. stress test. c/w current medical mgmt including DAPT, Hep gtt., statin , BB. Plan d/w the patient along with cardiology at bedside. Visit type - Emergency Visit Emergency Visit: Yes ED Registration Date: 08/12/18 Care time: The patient presented to the Emergency Department on the above date and was hospitalized for further evaluation of their emergent condition. - New Patient This patient is new to me today: Yes Date on this admission: 08/14/18 - Critical Care Critical Care patient: No
--- NOTE | 2018-08-14 15:36 | EKG ---
Test Reason : Blood Pressure : / mmHG Vent. Rate : 078 BPM Atrial Rate : 078 BPM P-R Int : 196 ms QRS Dur : 074 ms QT Int : 382 ms P-R-T Axes : 067 -12 027 degrees QTc Int : 435 ms NORMAL SINUS RHYTHM NORMAL ECG WHEN COMPARED WITH ECG OF 12-AUG-2018 13:43, SINUS RHYTHM HAS REPLACED ATRIAL FIBRILLATION VENT. RATE HAS DECREASED BY 42 BPM Confirmed by LIBORIO DOUGLAS, MAUREEN ([id number]) on 08/14/2018 3:35:57 PM Referred By: Confirmed By:MAUREEN CAPONE MD
[2018-08-14] MEDS ORDERED: PT OWN MED DRAWER 7, Y5N ONE (21:18)
[2018-08-14] MEDS: HEPARIN - 25,000 UNIT in SODIUM CHLORIDE 495 ML IV SCH (21:46)
[2018-08-14] MEDS: ATORVASTATIN CA 80 MG TABLET (FP) PO SCH (21:46)
[2018-08-15 07:49] LABS: HEMATOCRIT 38.3 % (32.4-45.2); HEMOGLOBIN 12.5 GM/dL (10.7-15.3); MCH 29.1 pg (25.7-33.7); MCHC 32.6 g/dl (32.0-36.0); MEAN CELL VOLUME 89.4 fl (80-96); MEAN PLT VOLUME 7.7 fl (7.5-11.1); PLATELET COUNT 209 K/MM3 (134-434); RBC 4.29 M/mm3 (3.60-5.2); RDW 14.1 % (11.6-15.6); WHITE BLOOD COUNT 6.8 K/mm3 (4.0-10.0)
--- NOTE | 2018-08-15 08:57 | PN ---
Progress Note, Physician Chief Complaint: palpitations History of Present Illness: feels well. no cp, sob, palpitations. no syncope - Current Medication List Current Medications: Active Medications Acetaminophen (Tylenol -) 650 mg PO Q4H PRN PRN Reason: FEVER Aspirin (Ecotrin -) 81 mg PO DAILY [facility] Last Admin: 08/14/18 09:48 Dose: 81 mg Atorvastatin Calcium (Lipitor -) 80 mg PO HS [facility] Last Admin: 08/14/18 21:46 Dose: 80 mg Heparin Sodium (Porcine) (Heparin -) 1,000 unit IVPUSH PRN PRN PRN Reason: Heparin Heparin Sodium (Porcine) (Heparin -) 5,000 unit IVPUSH PRN PRN PRN Reason: Heparin Last Admin: 08/13/18 00:02 Dose: 5,000 unit Heparin Sodium (Porcine) 25, (000 unit/ Sodium Chloride) 500 mls @ 16 mls/hr IV TITR [facility]; Protocol Last Admin: 08/14/18 21:46 Dose: 850 unit/hr, 17 mls/hr Metoprolol Tartrate (Lopressor -) 25 mg PO BID [facility] Last Admin: 08/14/18 21:46 Dose: 25 mg - Objective Vital Signs: Vital Signs Temperature 97.5 F L 08/15/18 05:00 Pulse Rate 66 08/15/18 05:00 Respiratory Rate 20 08/15/18 05:00 Blood Pressure 140/76 08/15/18 05:00 O2 Sat by Pulse Oximetry (%) 92 L 08/14/18 22:00 Constitutional: Yes: Well Nourished, No Distress, Calm Cardiovascular: Yes: Regular Rate and Rhythm, S1, S2. No: JVD, Gallop, Murmur Respiratory: Yes: Regular, CTA Bilaterally. No: Accessory Muscle Use, Rales, Wheezes Extremities: No: Cold Edema: No Neurological: Yes: Alert, Oriented Psychiatric: No: Agitated Labs: CBC, BMP 08/15/18 06:30 08/14/18 05:30 INR, PTT INR (0.83-1.09) 08/12/18 09:50 Assessment/Plan ECG 08/12: afib. nl axis. diffuse ST-Ts c/w ischemia ECG 08/13: NSR, no ischemic changes CXR: central congestive changes. image reviewed: decr insp effort, no vascular redistrib pattern, no effusions-- suspect soft tissue crowding > pulm congestion Echo 08/13/18: nl LV/EF. nl RV. normal morphology MV with mild MR. RVSP 50. Echo 05/11: nl EF 60-65%. mild LAE. 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 at least mild pHTN (no RVSP. elevated PA diast measurement) Cardiac MRI 2016: nl LVEF (62%). nl RV. severe LAE. prolapse of posterior leaflet, moderate MR (RV 17%). tele: NSR, 6b run NSVT rapid AF: -now converted to sinus, on metoprolol -CHADS VASC 3. UFH started here. -if no ischemia on nuclear stress tomorrow (i.e. no plan for cath), will start eliquis or xarelto tomorrow and stop heparin NSTEMI: -ischemic STs on ECG in ER, when in rapid Afib-->resolved in sinus -troponin xfcs-cpi-gwig pattern peaked at 2.6 -? ACS/plaque rupture event which triggered afib, as the troponin pattern supports this process more than demand ischemia from rapid HRs. vs Type II [place] sec to prolonged tachycardia. -nl LVEF, no RWMA on echo. -no ongoing sx's. -cont UFH as doing -start ASA. defer clopidogrel, as nature of the [place] pathophysiology uncertain ( will d/w interventional cardio as well) -start low dose metopr tartrate 25 bid -start hi intensity statin (atorva 80) -options d/w'd pt and son--they have opted for ischemia-driven tx strategy. for pharm MPI tomorrow. VTach: -NSVT on tele -BB as ordered -K/Mag monitoring/repletion as doing -EF preserved, no PMVT hence doubt sec to acute ischemia (? 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 -needs MR severity reassessed as outpatient with dedicated echo and possibly RENATA (+/-) CMR as outpt--if severe MR with afib, she has IIa indication for MV surgery COPD: -stable, no signs a.e. -tolerating metoprolol low dose plan for d/c tomorrow if stress test shows no ischemia. .
[2018-08-15] MEDS: ASPIRIN COATED 81 MG TABLET.EC PO SCH (09:18)
[2018-08-15] MEDS: METOPROLOL TARTRATE 25 MG TABLET (FP) PO SCH ×2 (09:18→21:08)
[2018-08-15] MEDS ORDERED: MAGNESIUM SULF 50% (8.12 MEQ/2 ML-1 GM VIAL) IVPB ONE (10:10)
--- NOTE | 2018-08-15 11:56 | PN ---
Physical Exam: SUBJECTIVE: Patient seen and examined at bedside. No overnight events. No new complaints. Feels well overall. Denies CP,MOLINA, SOB, abdominal pain, palpitations , nausea or vomiting. OBJECTIVE: Vital Signs Period Temp Pulse Resp BP Sys/Araiza Pulse Ox Last 24 Hr 97.5 F-98.4 F 61-80 18-20 124-140/66-79 92-95 GENERAL: AAOx3, NAD HEAD: NCAT EYES: PERRL, EOMI, sclera anicteric, conjunctiva clear. No ptosis. ENT: Moist mucous membranes. NECK:Supple, No JVD LUNGS: CTAB, no wheezes, no crackles, no accessory muscle use. HEART: RRR, S1, S2 without murmur, rub or gallop. ABDOMEN: Soft, NTND,NABS no guarding, no rebound, no hepatosplenomegaly, no masses. EXTREMITIES: 2+ pulses, warm, well-perfused, no edema. NEUROLOGICAL: Cranial nerves II through XII grossly intact. Normal speech, gait not observed. PSYCH: Normal mood, normal affect. SKIN: Warm, dry, normal turgor, no rashes or lesions noted Laboratory Results - last 24 hr 08/12/18 08/15/18 08/15/18 11:06 06:30 06:30 WBC 6.8 RBC 4.29 Hgb 12.5 Hct 38.3 MCV 89.4 MCH 29.1 MCHC 32.6 RDW 14.1 Plt Count 209 MPV 7.7 PTT (Actin FS) 57.6 H Blood Type A POSITIVE Antibody Screen Negative Crossmatch See Detail Active Medications Generic Name Dose Route Start Last Admin Trade Name Freq PRN Reason Stop Dose Admin Acetaminophen 650 mg 08/12/18 15:04 Tylenol - PO Q4H PRN FEVER Aspirin 81 mg 08/13/18 16:00 08/15/18 09:18 Ecotrin - PO 81 mg DAILY SHIMA Administration Atorvastatin Calcium 80 mg 08/13/18 22:00 08/14/18 21:46 Lipitor - PO 80 mg HS SHIMA Administration Heparin Sodium (Porcine) 1,000 unit 08/12/18 13:05 Heparin - IVPUSH PRN PRN Heparin Heparin Sodium (Porcine) 5,000 unit 08/12/18 13:05 08/13/18 00:02 Heparin - IVPUSH 5,000 unit PRN PRN Administration Heparin Heparin Sodium (Porcine) 25, 500 mls @ 16 mls/hr 08/12/18 13:15 08/14/18 21: 46 000 unit/ Sodium Chloride IV 850 unit/hr TITR SHIMA 17 mls/hr Administration Protocol 800 UNIT/HR Metoprolol Tartrate 25 mg 08/13/18 15:48 08/15/18 09:18 Lopressor - PO 25 mg BID SHIMA Administration ASSESSMENT/PLAN: Problem List - Problems (1) NSTEMI (non-ST elevated myocardial infarction) Assessment/Plan: nl LVEF, no RWMA on echo. * ischemic STs on ECG in ER, when in rapid Afib-->resolved in sinus * troponin [id number]-jvs-bjky pattern peaked at 2.6 * ACS/plaque rupture event which triggered afib, as the troponin pattern supports this process more than demand ischemia from rapid HRs. vs Type II [place] sec to prolonged tachycardia. * Continue Heparin * ASA. defer clopidogrel, as per cardio * metopr tartrate 25 bid * atorvastatin 80 mg HS * MPI tomorrow. (2) Atrial fibrillation with rapid ventricular response Assessment/Plan: resolved/ Visit type - Emergency Visit Emergency Visit: Yes ED Registration Date: 08/12/18 Care time: The patient presented to the Emergency Department on the above date and was hospitalized for further evaluation of their emergent condition. - New Patient This patient is new to me today: Yes Date on this admission: 08/15/18 - Critical Care Critical Care patient: No
--- NOTE | 2018-08-15 13:12 | PN ---
Teaching Attending Note Name of Resident: Natan Mclean ATTENDING PHYSICIAN STATEMENT I saw and evaluated the patient. I reviewed the resident's note and discussed the case with the resident. I agree with the resident's findings and plan as documented. SUBJECTIVE:asymptomatic. denies CP, SOB, fever, chills, N/V/C/D, palpitations OBJECTIVE: Last Vital Signs Temp Pulse Resp BP Pulse Ox 97.2 F L 78 20 156/75 92 L 08/15/18 09:00 08/15/18 09:00 08/15/18 09:00 08/15/18 09:00 08/14/18 22:00 General NAD CV S1 S2 RRR Lungs CTA B/L no wheezing/rales/rhonchi ASSESSMENT AND PLAN: 78yo F wtih PMH MVP and COPD presented to the ER with palpitaitons and found to be in afib with RVR with tropinemia 1. AFib with RVR- now in NSR.rate is controlled. high [id number]. on hep ggt plan to convert to NOAC pending results of NMST tomorrow. cardio on board 2. Tropinemia- due to demand ischemia. NMST tomorrow. on asa/statin 3. Vtach- no repeat episodes. on betablocker 4. possible d/c tomorrow pending results of NMST. spoke with son present at bedside, all questions answered. verbalized understanding and agreement with plan
[2018-08-15] MEDS ORDERED: PT OWN MED DRAWER 7, Y5N ONE (16:10)
[2018-08-15] MEDS: HEPARIN - 25,000 UNIT in SODIUM CHLORIDE 495 ML IV SCH (16:11)
[2018-08-15] MEDS: ATORVASTATIN CA 80 MG TABLET (FP) PO SCH (21:08)
[2018-08-16 07:26] LABS: HEMATOCRIT 40.9 % (32.4-45.2); HEMOGLOBIN 13.4 GM/dL (10.7-15.3); MCH 29.1 pg (25.7-33.7); MCHC 32.8 g/dl (32.0-36.0); MEAN CELL VOLUME 88.8 fl (80-96); MEAN PLT VOLUME 7.5 fl (7.5-11.1); PLATELET COUNT 221 K/MM3 (134-434); RBC 4.61 M/mm3 (3.60-5.2); RDW 14.1 % (11.6-15.6); WHITE BLOOD COUNT 6.2 K/mm3 (4.0-10.0)
[2018-08-16] MEDS ORDERED: REGADENOSON 0.4 MG/5 ML PRE-FILLED SYRINGE IVPUSH ONE ×2 (10:58→11:00)
--- NOTE | 2018-08-16 15:49 | PN ---
Teaching Attending Note Name of Resident: Natan Mclean ATTENDING PHYSICIAN STATEMENT I saw and evaluated the patient. I reviewed the resident's note and discussed the case with the resident. I agree with the resident's findings and plan as documented. SUBJECTIVE: OBJECTIVE: ASSESSMENT AND PLAN: 78yo F w MVP and COPD presented to the ER with palpitaitons and found to be in afib with RVR with tropinemia 1. AFib with RVR- now in NSR.rate is controlled. high [id number]. Current Medications Generic Name Dose Route Start Last Admin Trade Name Freq PRN Reason Stop Dose Admin Acetaminophen 650 mg 08/12/18 15:04 Tylenol - PO Q4H PRN FEVER Aspirin 81 mg 08/13/18 16:00 08/15/18 09:18 Ecotrin - PO 81 mg DAILY SHIMA Administration Atorvastatin Calcium 80 mg 08/13/18 22:00 08/15/18 21:08 Lipitor - PO 80 mg HS SHIMA Administration Heparin Sodium (Porcine) 1,000 unit 08/12/18 13:05 Heparin - IVPUSH PRN PRN Heparin Heparin Sodium (Porcine) 5,000 unit 08/12/18 13:05 08/13/18 00:02 Heparin - IVPUSH 5,000 unit PRN PRN Administration Heparin Heparin Sodium (Porcine) 25, 500 mls @ 16 mls/hr 08/12/18 13:15 08/15/18 16: 11 000 unit/ Sodium Chloride IV 850 unit/hr TITR SHIMA 17 mls/hr Administration Protocol 800 UNIT/HR Metoprolol Tartrate 25 mg 08/13/18 15:48 08/15/18 21:08 Lopressor - PO 25 mg BID SHIMA Administration 2. Tropinemia- due to demand ischemia. NMST tomorrow. on asa/statin 3. Vtach- no repeat episodes. on betablocker 4. possible d/c tomorrow pending results of NMST. spoke with son present at bedside, all questions answered. verbalized understanding and agreement with plan
--- NOTE | 2018-08-16 16:46 | DS ---
Physical Exam: SUBJECTIVE: Patient seen and examined at bedside. No overnight events. No new complaints. Feels well overall. Denies CP,MOLINA, SOB, abdominal pain, palpitations , nausea or vomiting. OBJECTIVE: Vital Signs Period Temp Pulse Resp BP Sys/Araiza Pulse Ox Last 24 Hr 97.5 F-98.4 F 61-80 18-20 124-140/66-79 92-95 GENERAL: AAOx3, NAD HEAD: NCAT EYES: PERRL, EOMI, sclera anicteric, conjunctiva clear. No ptosis. ENT: Moist mucous membranes. NECK:Supple, No JVD LUNGS: CTAB, no wheezes, no crackles, no accessory muscle use. HEART: RRR, S1, S2 without murmur, rub or gallop. ABDOMEN: Soft, NTND,NABS no guarding, no rebound, no hepatosplenomegaly, no masses. EXTREMITIES: 2+ pulses, warm, well-perfused, no edema. NEUROLOGICAL: Cranial nerves II through XII grossly intact. Normal speech, gait not observed. PSYCH: Normal mood, normal affect. SKIN: Warm, dry, normal turgor, no rashes or lesions noted LABS Laboratory Results - last 24 hr 08/16/18 08/16/18 06:30 06:30 WBC 6.2 RBC 4.61 Hgb 13.4 Hct 40.9 MCV 88.8 MCH 29.1 MCHC 32.8 RDW 14.1 Plt Count 221 MPV 7.5 PTT (Actin FS) 58.5 H HOSPITAL COURSE: 78 year old F who comes in with complaints of her heart racing. Admitted to telemetry for further management of Rapid AfiB and ischemic STs on ECG in ER . Cardiology consulted. HR control with metoprolol and started on heparin drip. This was subsequently changed to Eliquis BID. NSTEMI troponin fffy-oby-[id number] pattern peaked at 2.6. She was also started on high intensity statin of atrovastatin 80 dialy. Pharm MPI showed no evidence of ischemia (or infarct) .Echo 08/13/18: nl LV/EF. nl RV. normal morphology MV with mild MR. RVSP 50. Patient stable for discharge with short term follow up in one week with cardiology. Date of Admission:08/12/18 Date of Discharge: 08/16/18 Minutes to complete discharge: 33 Discharge Summary Reason For Visit: ATRIAL FIBRILLATION WITH RVR;ELEVATED TROPONIN LEV Current Active Problems Atrial fibrillation with rapid ventricular response (Acute) Elevated troponin (Acute) NSTEMI (non-ST elevated myocardial infarction) (Acute) Palpitations (Acute) Condition: Improved - Instructions Diet, Activity, Other Instructions: You have been seen and treated for new onset atrial fibrillation. Your stress test did not show any signs of heart attack. You will need to continue two new medications. The Metoprolol 25mg taken twice a day morning and night as well as Eliquis 5mg twice a day as well. You can increase your activity as tolerated. Please resume a heart healthy diet. Follow up with Cardiology Dr. Capps in one week. If you experience any chest pain, shortness of breath or bleeding please return to ER immediately. Referrals: Deysi Reeves MD [Primary Care Provider] - Nesha Capps MD [Staff Physician] - 1 Week Disposition: HOME - Home Medications Comprehensive Discharge Medication List: Ambulatory Orders Apixaban [Eliquis -] 5 mg PO BID #60 tablet 08/16/18 Metoprolol Tartrate [Lopressor -] 25 mg PO BID #60 tablet 08/16/18 Problem List - Problems (1) NSTEMI (non-ST elevated myocardial infarction) (2) Atrial fibrillation with rapid ventricular response This patient is new to me today: No Emergency Visit: Yes ED Registration Date: 08/12/18 Care time: The patient presented to the Emergency Department on the above date and was hospitalized for further evaluation of their emergent condition. Critical Care patient: No - Discharge Referral Referred to [facility] Med P.C.: No
[2018-08-16 16:53] VITALS: BP 152/89; PULSE 76; TEMP 97.8
[2018-08-17] MEDS ORDERED: APIXABAN 5 MG TABLET PO SCH (10:00)
== END 2018-08-16 18:46 | disposition home or self-care (01) | DRG 281 ==
LOC: JER 09:19 → JERBED 13:57 → J4W 19:15
PROVIDERS: ADMIT Internal Medicine; ATTEND Internal Medicine
PROC: 30233N1 Transfusion of Nonautologous Red Blood Cells into Peripheral Vein, Percutaneous Approach (ICD-10-PCS; principal; 2018-08-12)
DX: I21.A1 Myocardial infarction type 2 (principal); I47.2 Ventricular tachycardia; I48.91 Unspecified atrial fibrillation; I34.1 Nonrheumatic mitral (valve) prolapse; J44.9 Chronic obstructive pulmonary disease, unspecified; K57.30 Diverticulosis of large intestine without perforation or abscess without bleeding; Z85.3 Personal history of malignant neoplasm of breast; Z90.11 Acquired absence of right breast and nipple; D64.9 Anemia, unspecified
CPT/HCPCS: 36415; 36430; 36511; 71045-TC-FY; 78452-TC; 80048; 80053; 80061; 82272; 82550; 82553; 82728; 82962; 83010; 83540; 83550; 83615; 83721; 83735; 84100; 84439; 84443; 84466; 84480; 84481; 84484; 85025; 85027; 85044; 85610; 85730; 86850; 86900; 86901; 86922; 93005; 93010; 93017; 93306-TC; 99285-25; A9502; J1644; J2785; P9038; P9058

== ENCOUNTER 2019-03-29 15:44 | Emergency (ER) | payer BC ==
[2019-03-29 15:59] VITALS: BMI 25.4
[2019-03-29 16:15] VITALS: BP 156/90; PULSE 79; TEMP 98
--- NOTE | 2019-03-29 17:57 | PDOC ---
History of Present Illness - General Chief Complaint: Pain, Acute Stated Complaint: ABD PAIN Time Seen by Provider: 03/29/19 17:55 Past History - Past Medical History Allergies/Adverse Reactions: Allergies Allergy/AdvReac Type Severity Reaction Status Date / Time No Known Allergies Allergy Verified 03/29/19 15:45 Home Medications: Ambulatory Orders Apixaban [Eliquis -] 5 mg PO BID #60 tablet 08/16/18 Metoprolol Tartrate [Lopressor -] 25 mg PO BID #60 tablet 08/16/18 Cancer: Yes (breast) Cardiac Disorders: No COPD: Yes CHF: No GI Disorders: Yes (diverticulitis) - Surgical History Abdominal Surgery: No - Immunization History Immunization Up to Date: Yes - Suicide/Smoking/Psychosocial Hx Smoking Status: No Smoking History: Never smoked Have you smoked in the past 12 months: No Number of Cigarettes Smoked Daily: 0 If you are a former smoker, when did you quit?: 10 years ago Cigars Per Day: 0 Hx Alcohol Use: No Drug/Substance Use Hx: No Substance Use Type: None Hx Substance Use Treatment: No *Physical Exam - Vital Signs Last Vital Signs Temp Pulse Resp BP Pulse Ox 98.0 F 79 20 156/90 96 03/29/19 15:45 03/29/19 15:45 03/29/19 15:45 03/29/19 15:45 03/29/19 15:45 ED Treatment Course - ADDITIONAL ORDERS Additional order review: Laboratory Results 03/29/19 17:38 Urine Color Yellow Urine Appearance Clear Urine pH 5.5 Urine Protein Negative Urine Glucose (UA) Negative Urine Ketones Negative Urine Blood 2+ H Urine Nitrite Negative Urine Bilirubin Negative Urine Urobilinogen 0.2 Ur Leukocyte Esterase Negative *DC/Admit/Observation/Transfer - Discharge Dispostion Condition at time of disposition: Stable - Referrals Referrals: Deysi Reeves MD [Primary Care Provider] - - Patient Instructions - Post Discharge Activity
[2019-03-29] MEDS ORDERED: ACETAMINOPHEN 1000 MG/100 ML VIAL (NON FORMULARY) IVPB ONE (18:07)
[2019-03-29 18:08] LABS: EPITHELIAL CELLS FEW /hpf
[2019-03-29] MEDS ORDERED: SODIUM CHLORIDE 1,000 ML IV STA (18:08)
[2019-03-29] MEDS ORDERED: morphine CARPU-JECT 2 MG/1 ML DISP.SYRIN IVPUSH ONE (18:11)
[2019-03-29 19:00] LABS: BASO % 0.5 % (0-2.0); EOS % 0.6 % (0-4.5); HEMATOCRIT 43.6 % (32.4-45.2); HEMOGLOBIN 14.9 GM/dl (10.7-15.3); LYMPH % 11.5 % (8-40); MCH 30.6 pg (25.7-33.7); MEAN CELL VOLUME 89.9 fl (80-96); MEAN PLT VOLUME 8.1 fl (7.5-11.1); MONO % 6.3 % (3.8-10.2); NEUT % 81.1 % (42.8-82.8); PLATELET COUNT 237 K/MM3 (134-434); RBC 4.85 M/mm3 (3.60-5.2); RDW 13.5 % (11.6-15.6); WHITE BLOOD COUNT 10.9 K/mm3 (4.0-10.8)
[2019-03-29 19:17] LABS: ALBUMIN 3.8 g/dl (3.4-5.0); BILIRUBIN,TOTAL 1.3 mg/dl (0.2-1); CALCIUM 8.5 mg/dl (8.5-10); CREATININE 0.6 mg/dl (0.55-1.3); POTASSIUM 4.3 mmol/L (3.5-5.1); TOT PROT 6.9 g/dl (6.4-8.2)
--- NOTE | 2019-03-29 19:21 | PDOC ---
Documentation entered by Keisha Copeland SCRIBE, acting as scribe for Shabana Anders DO. Shabana Anders DO: This documentation has been prepared by the Min kramer Aiswarya, SCRIBE, under my direction and personally reviewed by me in its entirety. I confirm that the documentation accurately reflects all work, treatment, procedures, and medical decision making performed by me. Attending Attestation - Resident Resident Name: Dylon Simons - ED Attending Attestation I have performed the following: I have examined & evaluated the patient, The case was reviewed & discussed with the resident, I agree w/resident's findings & plan, Exceptions are as noted - HPI HPI: 03/29/19 19:20 The patient is an78 year old female, with a significant PMH of breast cancer, COPD and diverticulitis, who presents to the emergency department with abdomen pain that began 2 days ago. The patient states the constant, crampy sharp pain is located to the left lower quadrant, with a severity of 8/10. The patient states pain feels similar to her diverticulitis in the past. She reports her last BM was yesterday, no blood was found. The patient denies chest pain, shortness of breath, headache and dizziness.Denies fever, chills, nausea, vomit, diarrhea and constipation.Denies dysuria, frequency, urgency and hematuria. Allergies: NKDA Past surgical history: None reported Social history: None reported PCP: Deysi Reeves - Physicial Exam PE: 03/29/19 19:20 Constitutional: Awake, alert, oriented. No acute distress. Cardiovascular: Regular rate. Regular rhythm. S1, S2 regular. Distal pulses are 2+ and symmetric. Pulmonary/Chest: No evidence of respiratory distress. Clear to auscultation bilaterally No wheezing, rales or rhonchi. Abdominal:+LLQ tenderness on palpation Soft and non-distended. No rebound, guarding or rigidity. No organomegaly. No palpable masses. Good bowel sounds. Back: No CVA tenderness. Skin: Skin is warm and dry. No petechiae. No purpura. Neurological: Alert and oriented to person, place, and time. Psychiatric: Good eye contact. Normal interaction, affect and behavior. - Medical Decision Making 03/29/19 19:11 I, Dr. Shabana Anders, DO, attest that this document has been prepared under my direction and personally reviewed by me in its entirety. I further attest, that it accurately reflects all work, treatment, procedures and medical decision -making performed by me. 03/29/19 19:11 a/p: 78yo female with LLQ pain that stared today -similar to prior episode of diverticulitis in july -PMD dr. Winn -No f/c. no diarrhea, no n/v -pain to LLQ -denies dysuria or urinary complaitns -hx of afib, took her meds today -pt is nontoxic in appearance -will send labs, ct abd/pelvis -will hydrate with ivf hydration -will give iv tylenol for pain 03/29/19 19:12 wbc 10[address] abd/pelvis and labs -trace amoutn of blood in urine no cva ttp pt signed out the oncoming ed physician pending re-eval
--- NOTE | 2019-03-29 21:58 | PDOC ---
*Physical Exam - Vital Signs Last Vital Signs Temp Pulse Resp BP Pulse Ox 98.0 F 79 20 156/90 96 03/29/19 15:45 03/29/19 15:45 03/29/19 15:45 03/29/19 15:45 03/29/19 15:45 ED Treatment Course - LABORATORY CBC & Chemistry Diagram: 03/29/19 18:28 03/29/19 18:28 - ADDITIONAL ORDERS Additional order review: Laboratory Results 03/29/19 03/29/19 03/29/19 18:28 18:28 17:38 Sodium 138 Potassium 4.3 Chloride 105 Carbon Dioxide 28 Anion Gap 5 L BUN 16.0 Creatinine 0.6 Est GFR (CKD-EPI)AfAm 102.62 Est GFR (CKD-EPI)NonAf 88.54 Random Glucose 101 Calcium 8.5 Total Bilirubin 1.3 H AST 18 ALT 11 L Alkaline Phosphatase 63 Total Protein 6.9 Albumin 3.8 Lipase 226 Urine Color Yellow Urine Appearance Clear Urine pH 5.5 Urine Protein Negative Urine Glucose (UA) Negative Urine Ketones Negative Urine Blood 2+ H Urine Nitrite Negative Urine Bilirubin Negative Urine Urobilinogen 0.2 Ur Leukocyte Esterase Negative Urine RBC 5-10 Urine WBC 0-2 Ur Transition Epith Cell Few 03/29/19 18:28 RBC 4.85 MCV 89.9 MCHC 34.0 RDW 13.5 MPV 8.1 Neutrophils % 81.1 Lymphocytes % 11.5 Monocytes % 6.3 Eosinophils % 0.6 Basophils % 0.5 - Medications Given in the ED: ED Medications Discontinued Medications Generic Name Dose Route Start Last Admin Trade Name Freq PRN Reason Stop Dose Admin Acetaminophen 1,000 mg 03/29/19 18:07 03/29/19 18:38 Ofirmev Injection - IVPB 03/29/19 18:08 1,000 mg ONCE ONE Administration Sodium Chloride 1,000 mls @ 1,000 mls/hr 03/29/19 18:08 03/29/19 18:38 Normal Saline - IV 03/29/19 19:07 1,000 mls/hr ASDIR STA Administration Morphine Sulfate 2 mg 03/29/19 18:11 03/29/19 18:38 Morphine Injection - IVPUSH 03/29/19 18:12 Not Given ONCE ONE Progress Note - Progress Note Progress Note: Care of this patient received from Dr. Anders. Abdominal/pelvic CT consistent with acute diverticulitis involving the sigmoid colon. No evidence of abscess/perforation or other complications of diverticulitis. Results discussed with the patient. She reports that IV acetaminophen had been ineffective for pain relief but there has been some recurrence of mild discomfort in her abdomen. Otherwise, no nausea/vomiting or other symptoms have developed. She states that previous antibiotic regimen of Cipro and Flagyl for her acute diverticulitis episode in July, were "strong" but good without side effects for her. She did not need to take tramadol prescribed at that time. Patient will be started on similar course of Cipro and Flagyl for 10 days. First dose of each medication given here in the emergency room. Since she has some residual discomfort in her abdomen, dose of tramadol 50 mg by mouth will also be given here in the emergency room. Prescriptions for each of these medications have been transmitted to her pharmacy. Patient should follow-up with her PMD within the next few days. If she develops severe, persistent pain, high fever, vomiting, she should return to the emergency room *DC/Admit/Observation/Transfer Diagnosis at time of Disposition: Diverticulitis - Discharge Dispostion Disposition: HOME Condition at time of disposition: Stable - Prescriptions Prescriptions: Ciprofloxacin [Cipro (Restricted To Id)] 500 mg PO Q12H #20 tablet metroNIDAZOLE [Flagyl -] 500 mg PO TID #30 tablet traMADol HCL [Ultram -] 50 mg PO Q8H PRN #12 tablet MDD 3 tabs PRN Reason: Severe Pain - Referrals Referrals: Deysi Reeves MD [Primary Care Provider] - 3 days - Patient Instructions Printed Discharge Instructions: Diverticulitis Additional Instructions: Light diet Cipro 500 mg twice a day for 10 days Flagyl 500 mg 3 times a day for 10 days Tylenol as needed for mild pain; tramadol as needed for moderate to severe pain Return to ER if you have severe pain/vomiting/high fever Follow-up with your doctor within the next 2-3 days - Post Discharge Activity
[2019-03-29] MEDS ORDERED: CIPROFLOXACIN 500 MG TABLET (RESTRICTED TO ID) PO ONE (22:00)
[2019-03-29] MEDS ORDERED: metroNIDAZOLE 500 MG TABLET PO ONE (22:01)
[2019-03-29] MEDS ORDERED: traMADol HCL 50 MG TABLET PO ONE (22:02)
[2019-03-29] MEDS ORDERED: metroNIDAZOLE 250 MG TABLET ONE (22:04)
[2019-03-29] MEDS ORDERED: traMADol HCL 50 MG TABLET ONE (22:04)
[2019-03-29] MEDS ORDERED: CIPROFLOXACIN 250 MG TABLET (RESTRICTED TO ID) PO ONE (22:04)
== END 2019-03-29 22:19 | disposition home or self-care (01) ==
LOC: FER 15:44
PROC: 3E033NZ Introduction of Analgesics, Hypnotics, Sedatives into Peripheral Vein, Percutaneous Approach (ICD-10-PCS; principal; 2019-03-29)
PROC: 3E0337Z Introduction of Electrolytic and Water Balance Substance into Peripheral Vein, Percutaneous Approach (ICD-10-PCS; 2019-03-29)
DX: K57.92 Diverticulitis of intestine, part unspecified, without perforation or abscess without bleeding (principal); Z85.3 Personal history of malignant neoplasm of breast; J44.9 Chronic obstructive pulmonary disease, unspecified; Z87.891 Personal history of nicotine dependence
CPT/HCPCS: 36415; 74177-TC; 80053; 81003; 81015; 83690; 85025; 87086; 99283-25; J0131; J7030

== ENCOUNTER → 2020-04-02 | Day surgery (SDC) | payer BC ==
--- NOTE | 2020-04-06 14:55 | PATH ---
Surgical Pathology Report Patient Name: ROHAN LINARES [facility]. Rec. #: [id number] /Age/Gender: 1940 (Age: 79) / F Account: [id number] Location: [facility] Taken: 04/02/2020 Received: 04/02/2020 Reported: 04/06/2020 Physicians: Flaco Szymanski M.D. Specimen(s) Received LEFT BREAST MASS 12:00 3CM FN Clinical History Ultrasound findings: Suspicious Final Diagnosis LEFT BREAST 12:00, 3 CM FN, BIOPSY: INVASIVE DUCTAL CARCINOMA, WELL DIFFERENTIATED, MEASURING 1.2 CM IN GREATEST DIMENSION ON THIS SLIDE. DUCTAL CARCINOMA IN SITU (DCIS) PRESENT, INTERMEDIATE NUCLEAR GRADE, CRIBRIFORM PATTERN. Results of ER, OH, Her2 (IHC) & Ki-67 studies performed on this specimen at [place], [place] ([id number]) interpreted at [facility] are as follows: ER (clone [id number] mouse monoclonal antibody by [employer]): _x_ Positive: 100% nuclear staining with strong intensity PgR (clone16 mouse monoclonal antibody by [employer]): _x_ Negative: <1% nuclear staining Her2 IHC (EP3 from [employer], formerly known as [id number], using [employer] Polymer Refine detection kit): Negative (1+) Ki-67: <10% (low proliferative index) Positive and negative controls (internal if applicable) show appropriate results. Formalin fixation and cold ischemic times are within current ASCO/CAP recommendations for ER, OH and Her2 testing. Comment: Immunohistochemical stains show the following results: smooth muscle myosin heavy chain and p40 show loss of the myoepithelial cell layer in the areas of invasive carcinoma. E-cadherin shows strong diffuse membranous staining, supports the ductal phenotype. Smooth muscle myosin heavy chain and p40 performed at [place], [place] ([id number]) and interpreted at [facility]. E-cadherin performed and interpreted at [facility]. Positive and negative controls (internal if applicable) show appropriate results. Intradepartmental case reviewed with concordance on diagnosis, 04/06/2020. Electronically Signed Maylin Mahoney M.D. Gross Description Received in formalin labeled "left breast 12:00, 3 cm," are 4 cotton-yellow, cylindrical portions of fibroadipose tissue ranging from 0.8-1.7 cm in length and averaging 0.3 cm in diameter. The specimens are submitted in toto in one cassette. Time to formalin fixation: 5 minutes Total formalin fixation time: Approximately 6 hours. 04/02/2020 [facility]04/02/2020
== END | disposition home or self-care (01) ==
LOC: FRADUS-SUR 12:31
PROVIDERS: ATTEND Surgery Surgical Oncology
PROC: 0HBU3ZX Excision of Left Breast, Percutaneous Approach, Diagnostic (ICD-10-PCS; principal; 2020-04-02)
DX: C50.812 Malignant neoplasm of overlapping sites of left female breast (principal); Z17.0 Estrogen receptor positive status [ER+]; N63.25 Unspecified lump in the left breast, overlapping quadrants
CPT/HCPCS: 19083; 87899; 88305-TC; 88342-TC; A4648

== ENCOUNTER 2021-01-20 08:09 | Inpatient (IN) | payer BC ==
[2021-01-20] MEDS ORDERED: SODIUM CHLORIDE 1,000 ML IV STA (08:19)
[2021-01-20 08:55] LABS: BASO % 0.4 % (0-2.0); EOS % 0.1 % (0-4.5); HEMATOCRIT 42.1 % (32.4-45.2); HEMOGLOBIN 14.8 GM/dl (10.7-15.3); LYMPH % 5.5 % (8-40); MCH 31.3 pg (25.7-33.7); MCHC 35.2 g/dl (32.0-36.0); MEAN PLT VOLUME 7.8 fl (7.5-11.1); PLATELET COUNT 228 K/MM3 (134-434); RBC 4.73 M/mm3 (3.60-5.2); RDW 12.6 % (11.6-15.6); WHITE BLOOD COUNT 12.3 K/mm3 (4.0-10.8)
[2021-01-20 08:56] LABS: ACTIVATED PTT 32.1 SECONDS (25.2-36.5)
[2021-01-20 09:00] LABS: ALBUMIN 3.5 g/dl (3.4-5.0); BILIRUBIN,TOTAL 1.7 mg/dl (0.2-1); CALCIUM 8.4 mg/dl (8.5-10); CREATININE 0.7 mg/dl (0.55-1.3); INR 1.66 (0.82-1.09); TOT PROT 6.6 g/dl (6.4-8.2)
[2021-01-20] MEDS ORDERED: CIPROFLOXACIN 400 MG/D5W 400 MG/200 ML IVPB IVPB ONE (11:47)
[2021-01-20] MEDS: APIXABAN 5 MG TABLET PO SCH (12:35)
[2021-01-20] MEDS: SODIUM CHLORIDE 1,000 ML IV SCH (14:33)
[2021-01-20 17:38] VITALS: BMI 25.1
[2021-01-20] MEDS ORDERED: DEXTROSE 5%-WATER - 50 ML IVPB ONE (17:57)
[2021-01-20] MEDS ORDERED: PIPERACILLIN/TAZOBACTAM 3.375 GM VIAL IVPB ONE (17:57)
[2021-01-20] MEDS: PIPERACILLIN/TAZOB 3.375 GM 3.375 GM in DEXTROSE 5%-WATER - 50 ML IVPB SCH (17:59)
[2021-01-20] MEDS ORDERED: PIPERACILLIN/TAZOB 3.375 GM 3.375 GM in DEXTROSE 5%-WATER - 50 ML IVPB SCH (18:00)
[2021-01-20] MEDS: METOPROLOL TARTRATE 25 MG TABLET (FP) PO SCH (21:35)
[2021-01-20] MEDS ORDERED: APIXABAN 5 MG TABLET PO SCH (22:00)
[2021-01-21] MEDS ORDERED: PIPERACILLIN/TAZOBACTAM 3.375 GM VIAL IVPB ONE ×5 (00:18→23:44)
[2021-01-21] MEDS ORDERED: DEXTROSE 5%-WATER - 50 ML IVPB ONE ×5 (00:19→23:45)
[2021-01-21] MEDS: PIPERACILLIN/TAZOB 3.375 GM 3.375 GM in DEXTROSE 5%-WATER - 50 ML IVPB SCH ×3 (02:20→18:26)
[2021-01-21] MEDS: APIXABAN 5 MG TABLET PO SCH ×2 (09:47→21:36)
[2021-01-21] MEDS: ANASTROZOLE 1 MG TABLET PO SCH (09:48)
[2021-01-21] MEDS: METOPROLOL TARTRATE 25 MG TABLET (FP) PO SCH ×2 (09:49→21:37)
[2021-01-21 11:14] LABS: BASO % 0.9 % (0-2.0); EOS % 1.5 % (0-4.5); HEMATOCRIT 42.6 % (32.4-45.2); HEMOGLOBIN 14.4 GM/dl (10.7-15.3); LYMPH % 10.5 % (8-40); MCH 30.6 pg (25.7-33.7); MCHC 33.9 g/dl (32.0-36.0); MEAN CELL VOLUME 90.2 fl (80-96); MEAN PLT VOLUME 7.8 fl (7.5-11.1); MONO % 6.6 % (3.8-10.2); NEUT % 80.5 % (42.8-82.8); PLATELET COUNT 219 K/MM3 (134-434); RBC 4.72 M/mm3 (3.60-5.2); RDW 12.9 % (11.6-15.6); WHITE BLOOD COUNT 7.3 K/mm3 (4.0-10.8)
[2021-01-21 11:23] LABS: ALBUMIN 3.5 g/dl (3.4-5.0); BILIRUBIN,TOTAL 1.2 mg/dl (0.2-1); CALCIUM 8.1 mg/dl (8.5-10); CREATININE 0.7 mg/dl (0.55-1.3); MAGNESIUM 1.8 mg/dL (1.8-2.4); TOT PROT 6.4 g/dl (6.4-8.2)
[2021-01-21] MEDS ORDERED: POTASSIUM CHLORIDE TABS 20 MEQ TABLET.ER (FP) PO ONE ×2 (13:45→18:30)
[2021-01-21] MEDS: SODIUM CHLORIDE 1,000 ML IV SCH (14:00)
[2021-01-22] MEDS: PIPERACILLIN/TAZOB 3.375 GM 3.375 GM in DEXTROSE 5%-WATER - 50 ML IVPB SCH ×3 (01:25→17:38)
[2021-01-22 08:02] LABS: BASO % 0.5 % (0-2.0); EOS % 2.5 % (0-4.5); HEMATOCRIT 41.3 % (32.4-45.2); LYMPH % 10.9 % (8-40); MCHC 33.8 g/dl (32.0-36.0); MEAN CELL VOLUME 88.8 fl (80-96); MEAN PLT VOLUME 7.4 fl (7.5-11.1); MONO % 7.1 % (3.8-10.2); PLATELET COUNT 238 K/MM3 (134-434); RBC 4.65 M/mm3 (3.60-5.2); RDW 12.7 % (11.6-15.6); WHITE BLOOD COUNT 7.1 K/mm3 (4.0-10.8)
[2021-01-22 08:18] LABS: ALBUMIN 3.2 g/dl (3.4-5.0); BILIRUBIN,TOTAL 1.3 mg/dl (0.2-1); CALCIUM 8.2 mg/dl (8.5-10); CREATININE 0.7 mg/dl (0.55-1.3); MAGNESIUM 1.6 mg/dL (1.8-2.4); TOT PROT 5.9 g/dl (6.4-8.2)
[2021-01-22] MEDS ORDERED: PIPERACILLIN/TAZOBACTAM 3.375 GM VIAL IVPB ONE ×3 (10:53→23:26)
[2021-01-22] MEDS ORDERED: DEXTROSE 5%-WATER - 50 ML IVPB ONE ×3 (10:54→23:26)
[2021-01-22] MEDS: APIXABAN 5 MG TABLET PO SCH ×2 (10:59→21:08)
[2021-01-22] MEDS: ANASTROZOLE 1 MG TABLET PO SCH (10:59)
[2021-01-22] MEDS: METOPROLOL TARTRATE 25 MG TABLET (FP) PO SCH ×2 (10:59→21:08)
[2021-01-23] MEDS: PIPERACILLIN/TAZOB 3.375 GM 3.375 GM in DEXTROSE 5%-WATER - 50 ML IVPB SCH ×3 (01:06→18:47)
[2021-01-23] MEDS ORDERED: PIPERACILLIN/TAZOBACTAM 3.375 GM VIAL IVPB ONE ×2 (10:09→18:32)
[2021-01-23] MEDS ORDERED: DEXTROSE 5%-WATER - 50 ML IVPB ONE ×2 (10:09→18:33)
[2021-01-23] MEDS: ANASTROZOLE 1 MG TABLET PO SCH (10:28)
[2021-01-23] MEDS: METOPROLOL TARTRATE 25 MG TABLET (FP) PO SCH ×2 (10:28→21:26)
[2021-01-23] MEDS: MAGNESIUM OXIDE 400 MG TABLET (FP) PO SCH ×2 (10:28→21:26)
[2021-01-23] MEDS: APIXABAN 5 MG TABLET PO SCH ×2 (10:28→21:27)
[2021-01-24] MEDS ORDERED: PIPERACILLIN/TAZOBACTAM 3.375 GM VIAL IVPB ONE ×2 (01:43→10:18)
[2021-01-24] MEDS ORDERED: DEXTROSE 5%-WATER - 50 ML IVPB ONE ×2 (01:43→10:18)
[2021-01-24] MEDS: PIPERACILLIN/TAZOB 3.375 GM 3.375 GM in DEXTROSE 5%-WATER - 50 ML IVPB SCH ×2 (02:02→10:21)
[2021-01-24 08:18] LABS: EOS % 4.2 % (0-4.5); HEMATOCRIT 41.3 % (32.4-45.2); HEMOGLOBIN 14.2 GM/dl (10.7-15.3); LYMPH % 20.7 % (8-40); MCH 30.5 pg (25.7-33.7); MCHC 34.3 g/dl (32.0-36.0); MEAN CELL VOLUME 89.1 fl (80-96); MEAN PLT VOLUME 7.7 fl (7.5-11.1); MONO % 8.9 % (3.8-10.2); NEUT % 65.2 % (42.8-82.8); PLATELET COUNT 272 K/MM3 (134-434); RBC 4.64 M/mm3 (3.60-5.2); RDW 12.6 % (11.6-15.6); WHITE BLOOD COUNT 6.3 K/mm3 (4.0-10.8)
[2021-01-24 08:25] LABS: ALBUMIN 3.2 g/dl (3.4-5.0); BILIRUBIN,TOTAL 0.9 mg/dl (0.2-1); CALCIUM 8.4 mg/dl (8.5-10); CREATININE 0.7 mg/dl (0.55-1.3); MAGNESIUM 1.7 mg/dL (1.8-2.4); TOT PROT 6.2 g/dl (6.4-8.2)
[2021-01-24] MEDS: MAGNESIUM OXIDE 400 MG TABLET (FP) PO SCH (10:20)
[2021-01-24] MEDS: METOPROLOL TARTRATE 25 MG TABLET (FP) PO SCH (10:20)
[2021-01-24] MEDS: ANASTROZOLE 1 MG TABLET PO SCH (10:21)
[2021-01-24] MEDS: APIXABAN 5 MG TABLET PO SCH (10:21)
[2021-01-24 14:17] VITALS: BP 116/65; PULSE 88; TEMP 97.6
== END 2021-01-24 17:16 | disposition home or self-care (01) | DRG 392 ==
LOC: FER 08:09 → FM/S 12:22
PROVIDERS: ADMIT Internal Medicine; ATTEND Nurse Practitioner Acute Care
DX: K57.92 Diverticulitis of intestine, part unspecified, without perforation or abscess without bleeding (principal); R10.9 Unspecified abdominal pain; I48.91 Unspecified atrial fibrillation; J44.9 Chronic obstructive pulmonary disease, unspecified; I10 Essential (primary) hypertension; Z85.3 Personal history of malignant neoplasm of breast
CPT/HCPCS: 36415; 71045-TC-FY; 74177-TC; 80053; 81003; 81015; 83605; 83690; 83735; 85025; 85610; 85730; 86850; 86900; 86901; 87040; 87086; 93005; 97116-GP; 97162-GP; 99285-25; C1887; C9803; Q9967; U0003; U0005

== ENCOUNTER 2021-05-25 04:33 | Day surgery (SDC) | payer BC ==
[2021-05-23 14:00] VITALS: BMI 24.1
[2021-05-25 12:45] VITALS: BP 156/83; PULSE 67
[2021-05-25 13:34] VITALS: TEMP 97.2
== END 2021-05-25 13:18 | disposition home or self-care (01) ==
LOC: JASU-ENDO 04:33
PROVIDERS: ATTEND Internal Medicine Gastroenterology
PROC: 0DJD8ZZ Inspection of Lower Intestinal Tract, Via Natural or Artificial Opening Endoscopic (ICD-10-PCS; principal; 2021-05-25 11:00)
DX: Z12.11 Encounter for screening for malignant neoplasm of colon (principal); K57.30 Diverticulosis of large intestine without perforation or abscess without bleeding; K55.20 Angiodysplasia of colon without hemorrhage; K64.8 Other hemorrhoids; K56.699 Other intestinal obstruction unspecified as to partial versus complete obstruction; I10 Essential (primary) hypertension; Z85.3 Personal history of malignant neoplasm of breast; I34.1 Nonrheumatic mitral (valve) prolapse; I48.0 Paroxysmal atrial fibrillation; Z79.01 Long term (current) use of anticoagulants; E04.9 Nontoxic goiter, unspecified; J44.9 Chronic obstructive pulmonary disease, unspecified